=== PATIENT | male | born 1940 | race Caucasian/White ===

== ENCOUNTER 2020-03-13 12:51 | Inpatient (IN) ==
[2020-03-13] MEDS ORDERED: ACETAMINOPHEN 325 MG TABLET PO ONE (13:31)
[2020-03-13] MEDS ORDERED: 0.9 % SODIUM CHLORIDE 1,000 ML IV ONE ×2 (13:41→17:30)
--- NOTE | 2020-03-13 13:50 | XRay Report ---
INDICATION: fever, cough TECHNIQUE: AP portable upright chest x-ray COMPARISON: None FINDINGS: Lungs:Lungs are negative. No focal pulmonary parenchymal infiltrate or mass Heart, vascular:No significant cardiomegaly. Pulmonary vascularity is normal. No pulmonary edema or pulmonary congestion Mediastinum, sus[place]:No mediastinal widening. No hilar mass Pleura:No pleural fluid. No pleural-based mass or calcification Skeletal:Negative. IMPRESSION: Negative AP chest x-ray Interpreted and Authenticated by: Rd Hyatt 03/13/20
[2020-03-13 14:34] LABS: Appearance,Urine CLEAR; Bacteria,Urine 0 /hpf (0); Bilirubin,Urine NEG (NEG); Color,Urine YELLOW; Culture Indicated,Urine NO; Glucose,Urine (UA) >=500 mg/dL (NEG); Ketones,Urine 20 mg/dL (NEG); Leukocyte Esterase,Urine NEG /uL (NEG); Mucus,Urine FEW /hpf (0); Nitrate,Urine NEG (NEG); Protein,Urine >=500 mg/dL (NEG); Specific Gravity,Urine 1.017 (1.000-1.035); Urine Blood 0.2 mg/dL (<0.03); Urine Hyaline Cast 1 /lpf (0-2); Urine RBC 41 /hpf (0-1); Urine Squamous Epithelial Cell < 1 /hpf (0-4); Urine WBC 2 /hpf (0-4); Urobilinogen,Urine NEG (NEG)
[2020-03-13 16:06] LABS: ABG Methemoglobin 0 % (0.4-1.5); Total Hemoglobin 13.5 gm/dL (13.5-16.5); VBG Oxygen Saturation 93.4 % (40.0-70.0); VBG PH 7.42 U (7.32-7.42); VBG PO2 107 mmHg (25-40)
[2020-03-13 16:07] LABS: ALT/SGPT 10 U/l (0-40); AST/SGOT 14 U/l (0-37); Albumin 3.1 gm/dL (3.2-5.2); Alkaline Phosphatase 75 U/L (39-117); Bilirubin,Total 0.7 mg/dL (0.0-1.0); Blood Urea Nitrogen 45 mg/dl (8-23); Calcium 8.7 mg/dl (8.6-10.4); Carbon Dioxide 26 mmol/L (22-30); Chloride 97 mmol/L (96-108); Globulin 3.1 gm/dL (2.2-3.7); Glomerular Filtration Rate 25; Glucose 319 mg/dL (70-105)
[2020-03-13 16:10] LABS: Basophils # (Auto) 0.06 K/mcL (0.00-0.30); Basophils % (Auto) 0.4 % (0.0-2.0); Eosinophils # (Auto) 0.01 K/mcL (0.00-0.70); Eosinophils % (Auto) 0.1 % (0.0-7.0); Granulocytes % (Auto) 92.1 % (38.0-78.0); Hematocrit 42.6 % (40.1-51.0); Hemoglobin 13.6 g/dL (13.7-17.5); Lymphocytes # (Auto) 0.21 K/mcL (1.50-4.80); Lymphocytes % (Auto) 1.6 % (15.5-49.0); Mean Cell Volume 88.4 fL (80.0-100.0); Mean Corpuscular HGB Conc 31.9 g/dL (31.0-36.0); Monocytes # (Auto) 0.78 K/mcL (0.10-0.90); Monocytes % (Auto) 5.8 % (1.0-12.0); Platelet Count 101 K/mcL (140-440); RBC 4.82 M/mcL (4.63-6.08); Red Cell Distribution Width 12.9 % (11.5-14.5); WBC 13.4 K/mcL (4.50-11.00)
--- NOTE | 2020-03-13 17:56 | Cat Scan Report ---
INDICATION: fever, cough COMPARISON: Chest x-rays dated 03/13/2020, 01/05/2014, 01/02/2011 TECHNIQUE: Axial noncontrast enhanced images through the chest. Sagittally and coronally reformatted images. MIP reformatted images. FINDINGS: Suboptimal evaluation as the patient was unable to suspend respiration Lungs:There is parenchymal density most consistent with dependent atelectasis in both lower lobes. There may be a very subtle small focus of groundglass opacity in the lingular segment of left upper lobe. Similar subtle possible abnormality in the right middle lobe. These are not considered definite abnormalities and may be secondary to less than optimal inspiration and motion. No other focal pulmonary parenchymal abnormalities. No parenchymal consolidation. There is no honeycombing or interlobular septal thickening. Mediastinum, vascular:No pathologic mediastinal or hilar adenopathy Thoracic aorta is negative. No aneurysmal dilatation Heart:No significant cardiomegaly. No pericardial effusion. Severe coronary artery calcification Pleura:No pleural effusion. No pleural-based mass. No pleural calcification Axilla, supraclavicular regions, chest wall:No axillary or supraclavicular adenopathy. Musculoskeletal:No thoracic compression fractures. No lytic lesions. No sternal or rib lesions Upper Abdomen:The adrenal glands are prominent bilaterally. Previous cholecystectomy IMPRESSION: 1. Suboptimal evaluation due to inability to suspend respiration and maximize inspiration 2. Possible subtle areas of groundglass opacity are present. Findings are not considered definite. 3. Bilateral dependent atelectasis The exam was performed using radiation dose optimization techniques including, but not limited to, automated exposure control, adjustment of the mA and/or kV according to patient size and use of iterative reconstruction technique. Interpreted and Authenticated by: Rd Hyatt 03/13/20
--- NOTE | 2020-03-13 19:05 | Emergency Department Note ---
General Adult HPI - General Chief complaint: Cold/Flu Symptoms Stated complaint: Fever/cough Time Seen by Provider: 03/13/20 13:24 Source: patient, EMS Mode of arrival: EMS Limitations: no limitations - History of Present Illness HPI Narrative: Patient presents emergency department for cough, generalized weakness, fever. He states that that presently the cough seems to have resolved to see more prominent in the mornings. He became weak today and collapsed at home and could not get up. He is brought to the emergency department by EMS. Nursing staff report that on patient arrival he did seem confused but this improved with hydration and Tylenol. Currently he states that he is feeling better. He does have a history of chronic renal problems. No other complaints. - Related Data Home Medications Medication Instructions Recorded Confirmed Aspirin [Lo-Dose Aspirin EC] 81 mg PO DAILY 03/13/20 03/13/20 Chlorthalidone [Hygroton] 12.5 mg PO DAILY 03/13/20 03/13/20 Diltiazem [Cardizem Sr] 120 mg PO DAILY 03/13/20 03/13/20 Gabapentin 600 mg PO BID 03/13/20 03/13/20 Insulin Glargine, Human [Lantus] unit SQ HS 03/13/20 Novolog Flexpen 03/13/20 Omeprazole 20 mg PO BID 03/13/20 03/13/20 Potassium Chloride [Kdur] 10 meq PO BIDCC 03/13/20 03/13/20 Pravastatin [Pravachol] 40 mg PO HS 03/13/20 03/13/20 Allergies Allergy/AdvReac Type Severity Reaction Status Date / Time No Known Drug Allergies Allergy Unverified 03/13/20 13:05 Review of Systems Review of Systems: As above, all other systems reviewed and negative. Past Medical History - Past Medical History Attestation: Yes: The following information was validated with the patient. Source: nursing notes reviewed - Social History smoking status: Former smoker Physical Exam Limitations: no limitations General appearance: alert Head: atraumatic, normocephalic Eye: Present: normal appearance, PERRL, EOMI ENT: Present: normal exam Respiratory: Present: normal lung sounds bilaterally Cardiovascular: Present: tachycardia Extremities: Present: normal inspection Neurological: Present: alert, CN II-XII intact. Absent: motor sensory deficit Psychiatric: Present: normal affect Skin: Present: warm Course Vital Signs Temperature 102 F H 04/23/20 12:53 Pulse Rate 132 H 03/13/20 12:53 Respiratory Rate 19 03/13/20 12:53 Blood Pressure 178/91 03/13/20 12:53 Pulse Oximetry (%) 89 L 03/13/20 12:53 Temperature 98 F 03/13/20 14:24 Pulse Rate 126 H 03/13/20 18:01 Respiratory Rate 19 03/13/20 20:17 Blood Pressure 139/85 03/13/20 20:17 Pulse Oximetry (%) 96 03/13/20 18:01 Medical Decision Making - MDM Narrative Medical decision making narrative: Emergency department course: EKG shows sinus tachycardia, right bundle branch block, no acute ischemic changes. Chest x-ray showed no acute cardiopulmonary pathology. Laboratory studies reviewed as per the electronic medical record. Patient is hydrated IV fluids and medicated with Tylenol. On reviewing his vital sign trends vital signs appear to be labile with heart rate periodically into the 120s. Did repeat an EKG which appears to be sinus tachycardia. His respiratory rate has also been periodically elevated as high as 44. Blood pressures been stable. CT of the chest is read by radiology shows some possible groundglass opacities. Patient was swabbed for COVID-19. I spoke with the on-call hospitalist. Case reviewed in detail. Hospitalist agreed with admission. Impression: Febrile illness Plan: As above - Lab Data Lab results reviewed: Yes I reviewed the patient's lab results. Result diagrams: 03/13/20 13:58 03/13/20 13:58 Lab Results 03/13/20 03/13/20 03/13/20 Range/Units 13:30 13:58 13:58 WBC 13.4 H (4.50-11.00) K/mcL RBC 4.82 (4.63-6.08) M/mcL Hgb 13.6 L (13.7-17.5) g/dL Hct 42.6 (40.1-51.0) % MCV 88.4 (80.0-100.0) fL MCH 28.2 (26.0-34.0) pg MCHC 31.9 (31.0-36.0) g/dL RDW 12.9 (11.5-14.5) % Plt Count 101 L (140-440) K/mcL MPV 12.0 H (7.4-10.4) fL Gran % 92.1 H (38.0-78.0) % Lymph % (Auto) 1.6 L (15.5-49.0) % [place] % (Auto) 5.8 (1.0-12.0) % Eos % (Auto) 0.1 (0.0-7.0) % Baso % (Auto) 0.4 (0.0-2.0) % Gran # 12.33 H (1.80-8.00) K/mcL Lymph # (Auto) 0.21 L (1.50-4.80) K/mcL [place] # (Auto) 0.78 (0.10-0.90) K/mcL Eos # (Auto) 0.01 (0.00-0.70) K/mcL Baso # (Auto) 0.06 (0.00-0.30) K/mcL ABG Methemoglobin (0.4-1.5) % VBG pH (7.32-7.42) U VBG pCO2 VBG pO2 (25-40) mmHg VBG HCO3 VBG Total CO2 VBG O2 Saturation (40.0-70.0) % VBG Base Excess VBG Lactic Acid (0.5-2.0) mmol/L Carboxyhemoglobin (0.0-1.5) % THgb Total Hemoglobin (13.5-16.5) gm/dL O2 Delivery Level Sodium 136 (133-145) mmol/L Potassium 4.0 (3.3-5.1) mmol/L Chloride 97 (96-108) mmol/L Carbon Dioxide 26 (22-30) mmol/L Anion Gap 13.0 (8-16) BUN 45 H (8-23) mg/dl Creatinine 2.4 H (0.7-1.2) mg/dl GFR Calculation 25 Glucose 319 H (70-105) mg/dL Calcium 8.7 (8.6-10.4) mg/dl Total Bilirubin 0.7 (0.0-1.0) mg/dL AST 14 (0-37) U/l ALT 10 (0-40) U/l Alkaline Phosphatase 75 (39-117) U/L Total Protein 6.2 (5.9-8.4) gm/dL Albumin 3.1 L (3.2-5.2) gm/dL Globulin 3.1 (2.2-3.7) gm/dL Albumin/Globulin Ratio 1.0 (1.0-2.3) Urine Color Yellow Urine Appearance Clear Urine pH 6.0 (5.0-9.0) Ur Specific [place] 1.017 (1.000-1.035) Urine Protein >=500 A (NEG) mg/dL Urine Glucose (UA) >=500 A (NEG) mg/dL Urine Ketones 20 A (NEG) mg/dL Urine Occult Blood 0.2 A (<0.03) mg/dL Urine Nitrate Neg (NEG) Urine Bilirubin Neg (NEG) mg/dL Urine Urobilinogen Neg (NEG) mg/dL Ur Leukocyte Esterase Neg (NEG) /uL Urine RBC 41 H (0-1) /hpf Urine WBC 2 (0-4) /hpf Ur Squamous Epith Cells < 1 (0-4) /hpf Urine Bacteria 0 (0) /hpf Hyaline Casts 1 (0-2) /lpf Urine Mucus Few (0) /hpf Ur Culture Indicated? No Nasal/Oral COVID-19 PCR COVID-19 PCR Interp 03/13/20 03/13/20 03/13/20 Range/Units 13:58 13:58 17:13 WBC (4.50-11.00) K/mcL RBC (4.63-6.08) M/mcL Hgb (13.7-17.5) g/dL Hct (40.1-51.0) % MCV (80.0-100.0) fL MCH (26.0-34.0) pg MCHC (31.0-36.0) g/dL RDW (11.5-14.5) % Plt Count (140-440) K/mcL MPV (7.4-10.4) fL Gran % (38.0-78.0) % Lymph % (Auto) (15.5-49.0) % [place] % (Auto) (1.0-12.0) % Eos % (Auto) (0.0-7.0) % Baso % (Auto) (0.0-2.0) % Gran # (1.80-8.00) K/mcL Lymph # (Auto) (1.50-4.80) K/mcL [place] # (Auto) (0.10-0.90) K/mcL Eos # (Auto) (0.00-0.70) K/mcL Baso # (Auto) (0.00-0.30) K/mcL ABG Methemoglobin 0 L (0.4-1.5) % VBG pH 7.42 (7.32-7.42) U VBG pCO2 TNP VBG pO2 107 H (25-40) mmHg VBG HCO3 TNP VBG Total CO2 TNP VBG O2 Saturation 93.4 H (40.0-70.0) % VBG Base Excess TNP VBG Lactic Acid 1.4 (0.5-2.0) mmol/L Carboxyhemoglobin 5.0 H (0.0-1.5) % THgb Total Hemoglobin 13.5 (13.5-16.5) gm/dL O2 Delivery Level Not Reportable Sodium (133-145) mmol/L Potassium (3.3-5.1) mmol/L Chloride (96-108) mmol/L Carbon Dioxide (22-30) mmol/L Anion Gap (8-16) BUN (8-23) mg/dl Creatinine (0.7-1.2) mg/dl GFR Calculation Glucose (70-105) mg/dL Calcium (8.6-10.4) mg/dl Total Bilirubin (0.0-1.0) mg/dL AST (0-37) U/l ALT (0-40) U/l Alkaline Phosphatase (39-117) U/L Total Protein (5.9-8.4) gm/dL Albumin (3.2-5.2) gm/dL Globulin (2.2-3.7) gm/dL Albumin/Globulin Ratio (1.0-2.3) Urine Color Urine Appearance Urine pH (5.0-9.0) Ur Specific [place] (1.000-1.035) Urine Protein (NEG) mg/dL Urine Glucose (UA) (NEG) mg/dL Urine Ketones (NEG) mg/dL Urine Occult Blood (<0.03) mg/dL Urine Nitrate (NEG) Urine Bilirubin (NEG) mg/dL Urine Urobilinogen (NEG) mg/dL Ur Leukocyte Esterase (NEG) /uL Urine RBC (0-1) /hpf Urine WBC (0-4) /hpf Ur Squamous Epith Cells (0-4) /hpf Urine Bacteria (0) /hpf Hyaline Casts (0-2) /lpf Urine Mucus (0) /hpf Ur Culture Indicated? Nasal/Oral COVID-19 PCR Cancelled COVID-19 PCR Interp Cancelled - Radiology Data Radiology results reviewed: Yes I reviewed the patient's radiology results. Disposition Pt seen by [employer]M [employer]TER SUPERVISOR/PA only: No Clinical Impression: Febrile illness Disposition: Still a Patient
--- NOTE | 2020-03-13 20:26 | Internal Med History&Physical ---
Medical - H&P: [facility] Patient information: Note initiated : 03/13/20 at 8:17 pm Service Date, if different from initiated Date: [] Patient: Gregory Kiser 79 y/o M admitted on for Fever/cough. Chief Complaint: [fall] History of present illness: Mr. Kiser is a 79 year old M with a history of kidney disease who was brought to the ER due to fall, fever and delirium. Patient is a poor historian and almost all history is obtained from ER physician and chart. His son did provide some information to ER physician late this afternoon. Patient fell at home and stayed on the floor for 5 to 6 hours because he was so weak. This morning patient was found to have mild fever, delirium and generalized weakness. He also has been having cough for a couple of days. ER nurse stated that on patient arrival he did seem confused but this improved with hydration and Tylenol. In the ER, he had one episode of desaturation, 89%. CT chest - Possible subtle areas of groundglass opacity are present. Covid 19 was sent When I saw patient in the ER, other than the symptoms mentioned above, he could not tell me more history. Denies chest pain, headache, dizziness, abdominal pain, or dysuria. Review of systems: Positive for symptoms mentioned in HP all other systems were reviewed and are negative. Medical - H&P: PMH Medical history: DM Family history: reviewed and not pertinent Have you smoked in the last 12 months: No Drug use: none Alcohol use: none Medical - H&P: Meds Home Medications Medication Instructions Recorded Confirmed Type Aspirin [Lo-Dose Aspirin EC] 81 mg PO DAILY 03/13/20 03/13/20 History Chlorthalidone [Hygroton] 12.5 mg PO DAILY 03/13/20 03/13/20 History Diltiazem [Cardizem Sr] 120 mg PO DAILY 03/13/20 03/13/20 History Gabapentin 600 mg PO BID 03/13/20 03/13/20 History Insulin Glargine, Human [Lantus] unit SQ 03/13/20 History Novolog Flexpen 03/13/20 History Omeprazole 20 mg PO BID 03/13/20 03/13/20 History Potassium Chloride [Kdur] 10 meq PO BIDCC 03/13/20 03/13/20 History Pravastatin [Pravachol] 40 mg PO HS 03/13/20 03/13/20 History Allergies Allergy/AdvReac Type Severity Reaction Status Date / Time No Known Drug Allergies Allergy Unverified 03/13/20 13:05 Medical - H&P: Exam - Constitutional Vitals: Temp Pulse Resp BP Pulse Ox 102 F H 126 H 23 H 158/81 96 03/13/20 13:39 03/13/20 18:01 03/13/20 20:01 03/13/20 20:01 03/13/20 18:01 - Other Additional findings: General - No acute distress Eyes - PERRLA, EOM intact ENT no rhinorrhea, no noticeable or palpable swelling, no redness or rash around throat or on face Neck supple, no JVD, no thyromegaly Respiratory: Lungs -clear, no wheezing or crackles. Cardiovascular - RRR no m/r/g, GI - Normal bowel sounds, no distended, soft. Extremeties - No edema, cyanosis or clubbing Hemo/lymphatic/immune no lymphadenopathy Neurological Alert and oriented x 1, no focal neurological deficits. Psychiatry flat affect Medical - H&P: Reslt - Labs CBC & Chem 7: 03/13/20 13:58 03/13/20 13:58 Labs: Short CBC 03/13/20 Range/Units 13:58 WBC 13.4 H (4.50-11.00) K/mcL Hgb 13.6 L (13.7-17.5) g/dL Hct 42.6 (40.1-51.0) % Plt Count 101 L (140-440) K/mcL BMP 03/13/20 13:58 Sodium 136 Potassium 4.0 Chloride 97 Carbon Dioxide 26 BUN 45 H Creatinine 2.4 H Glucose 319 H Calcium 8.7 Liver Function 03/13/20 Range/Units 13:58 Total Bilirubin 0.7 (0.0-1.0) mg/dL AST 14 (0-37) U/l ALT 10 (0-40) U/l Alkaline Phosphatase 75 (39-117) U/L Albumin 3.1 L (3.2-5.2) gm/dL Urine 03/13/20 Range/Units 13:30 Urine Color Yellow Urine Appearance Clear Urine pH 6.0 (5.0-9.0) Ur Specific [place] 1.017 (1.000-1.035) Urine Protein >=500 A (NEG) mg/dL Urine Glucose (UA) >=500 A (NEG) mg/dL - ABG Interpretation ABG results: 03/13/20 13:58 ABG Methemoglobin 0 L VBG pH 7.42 VBG pCO2 TNP VBG pO2 107 H VBG HCO3 TNP VBG Total CO2 TNP VBG O2 Saturation 93.4 H VBG Base Excess TNP Medical - H&P: A/P - Narrative A/P Narrative: Assessment: 1. Acute hypoxic respiratory failure 2. Possible pneumonia 3. Cough 4. Generalized weakness 5. Fever 6. Dehydration 7. Leukocytosis with lymphocytopenia 8. TABATHA or CKD, creatinine 2.4 9. DM type 2 10. HTN Plan: 1. In the ER, he had one episode of aspiration, 89%. Pulse ox Oxygen 2. Patient has been having coughing, fever and generalized weakness. Unknown etiology Covid 19 was sent in the ER CRP, procalcitonin 3. Patient collapsed at home due to generalized weakness. CT of head Carotid US doppler CK, troponin EKG PT 4. In the ER, 2 L normal saline was given. Continue IV fluid 5. Creatinine 2.4. Do not know if patient has a TABATHA or CKD or CKD. IV fluid Intake and output Repeat renal function in the morning 6. Diabetic diet. Patient is on Lantus at home but do not know how many units he is on We have Lantus 5 units at bedtime Insulin sliding scale We will adjust insulin based on blood sugar levels 7. Continue chlorthalidone and diltiazem blood pressure 8. DVT prophylaxis: Heparin 9. Code status: full will need to discuss with family
[2020-03-13] MEDS ORDERED: PROCHLORPERAZINE 25 MG SUPP.RECT PR PRN ×2 (20:36→21:41)
[2020-03-13] MEDS ORDERED: DEXTROSE 50% 50 ML VIAL IV PRN ×2 (20:36→21:41)
[2020-03-13] MEDS ORDERED: ACETAMINOPHEN 325 MG TABLET PO PRN ×2 (20:36→21:41)
[2020-03-13] MEDS ORDERED: DEXTROSE 31 GM ORAL.SUSP PO PRN ×2 (20:36→21:41)
[2020-03-13] MEDS ORDERED: 0.9 % SODIUM CHLORIDE 1,000 ML IV SCH (20:45)
[2020-03-13 20:59] LABS: Creatine Kinase 124 IU/L (24-195)
[2020-03-13] MEDS ORDERED: traMADol 50 MG TABLET PO PRN ×2 (20:59→21:41)
[2020-03-13] MEDS ORDERED: OMEPRAZOLE 20 MG CAPSULE PO SCH (21:00)
[2020-03-13] MEDS ORDERED: HEPARIN 5,000 UNIT/ML VIAL SQ SCH (21:00)
[2020-03-13] MEDS ORDERED: INSULIN LISPRO 1 UNIT/0.01 ML UNIT SQ SCH (21:00)
[2020-03-13] MEDS ORDERED: INSULIN GLARGINE, HUMAN 1 UNIT/0.01 ML SQ SCH (21:00)
[2020-03-13] MEDS ORDERED: DOCUSATE SODIUM 100 MG CAPSULE PO SCH (21:00)
[2020-03-13] MEDS: 0.9 % SODIUM CHLORIDE 1,000 ML IV SCH (22:00)
[2020-03-13] MEDS ORDERED: 0.9 % SODIUM CHLORIDE 10 ML SYRINGE IV SCH (22:00)
[2020-03-13] MEDS: 0.9 % SODIUM CHLORIDE 10 ML SYRINGE IV SCH (22:27)
[2020-03-13] MEDS ORDERED: INSULIN GLARGINE, HUMAN 1 UNIT/0.01 ML SQ ONE (22:37)
[2020-03-13] MEDS ORDERED: INSULIN LISPRO 1 UNIT/0.01 ML UNIT SQ ONE (22:38)
[2020-03-13] MEDS: INSULIN LISPRO 1 UNIT/0.01 ML UNIT SQ SCH (22:42)
[2020-03-13] MEDS ORDERED: METOPROLOL TARTRATE 25 MG TABLET PO SCH (23:00)
[2020-03-13 23:04] LABS: Estimated Average Glucose(eAG) 174 mg/dL; Hemoglobin A1C 7.7 % HGB (4.0-6.0)
[2020-03-13 23:07] LABS: ALT/SGPT 11 U/l (0-40); AST/SGOT 15 U/l (0-37); Albumin 3.4 gm/dL (3.2-5.2); Albumin/Globulin Ratio 0.9 (1.0-2.3); Alkaline Phosphatase 80 U/L (39-117); Bilirubin,Total 0.8 mg/dL (0.0-1.0); Blood Urea Nitrogen 40 mg/dl (8-23); C-Reactive Protein 9.9 mg/dl (0.0-0.8); Calcium 8.8 mg/dl (8.6-10.4); Carbon Dioxide 27 mmol/L (22-30); Chloride 96 mmol/L (96-108); Globulin 3.6 gm/dL (2.2-3.7); Glomerular Filtration Rate 26; Glucose 241 mg/dL (70-105)
[2020-03-13 23:19] LABS: CRP,High Sensitivity 118.5 mg/L (1.0-3.0)
[2020-03-13] MEDS ORDERED: METOPROLOL TARTRATE 5 MG/5 ML VIAL IV PRN (23:45)
[2020-03-14] MEDS ORDERED: PRAVASTATIN 40 MG TABLET PO SCH ×2 (00:19→21:00)
[2020-03-14] MEDS ORDERED: HEPARIN 5,000 UNIT/ML VIAL ONE (00:28)
[2020-03-14] MEDS: OMEPRAZOLE 20 MG CAPSULE PO SCH ×3 (00:30→18:49)
[2020-03-14] MEDS: DOCUSATE SODIUM 100 MG CAPSULE PO SCH ×3 (00:30→21:59)
[2020-03-14] MEDS: HEPARIN 5,000 UNIT/ML VIAL SQ SCH ×3 (00:31→22:00)
[2020-03-14] MEDS ORDERED: METOPROLOL TARTRATE 5 MG/5 ML VIAL IV ONE (00:32)
[2020-03-14] MEDS ORDERED: LORazepam 2 MG/ML VIAL ONE (01:07)
[2020-03-14] MEDS: LORazepam 2 MG/ML VIAL IV PRN (01:08)
[2020-03-14] MEDS: ATORVASTATIN 40 MG TABLET PO SCH ×2 (01:08→22:00)
[2020-03-14] MEDS: 0.9 % SODIUM CHLORIDE 10 ML SYRINGE IV SCH ×3 (04:34→22:02)
[2020-03-14] MEDS ORDERED: ACETAMINOPHEN 325 MG TABLET PO ONE (04:36)
--- NOTE | 2020-03-14 05:49 | Cat Scan Report ---
INDICATION: fall COMPARISON: Previous examinations dated 01/07/2014 TECHNIQUE: Axial noncontrast-enhanced images through the brain. Sagittally and coronally reformatted images. FINDINGS: Cerebral hemispheres:No acute intra-axial hemorrhage. There is severe white matter abnormality consistent with small vessel ischemic change in this 79-year-old patient. This has progressed since 01/07/2014. No focal abnormality. No localized mass effect or midline shift. Brainstem and cerebellum:No intra-axial abnormality Extra-axial:No acute hemorrhage. No subdural or epidural hematoma. No subarachnoid hemorrhage. Basilar cisterns are normal Calvarial:No calvarial fracture. No lytic lesion Temporal bones are negative. No destructive lesions Soft tissue:Mild left supraorbital extracranial soft tissue swelling Examination was initially interpreted by [facility] IMPRESSION: 1. Severe white matter abnormality consistent with small vessel ischemic change 2. No acute intracranial hemorrhage. The exam was performed using radiation dose optimization techniques including, but not limited to, automated exposure control, adjustment of the mA and/or kV according to patient size and use of iterative reconstruction technique. Interpreted and Authenticated by: dR Hyatt 03/14/20
--- NOTE | 2020-03-14 05:53 | Ultrasound Report ---
INDICATION: fall/syncope COMPARISON: Previous carotid ultrasound dated 10/19/2012, 10/12/2008 TECHNIQUE: Carotid arteries were imaged in sagittal and transverse planes using 5 mHz linear probe: Doppler, color, and 2D. FINDINGS: There is atherosclerotic plaque in the proximal internal carotid artery bilaterally. There is mild plaque in the mid and distal cervical right internal carotid artery. Maximum Systolic Flow Velocity: - Right common carotid artery: 48 cm/sec - Right internal carotid artery: 37 cm/sec - Left common carotid artery: 56 cm/sec - Left internal carotid artery: 45 cm/sec Over all velocities appear low. No focal velocity elevation. No hemodynamically significant stenosis. No detectable ulceration. Vertebral arteries are antegrade patent bilaterally. IMPRESSION: 1. Bilateral internal carotid artery plaque. 2. No hemodynamically significant stenosis Interpreted and Authenticated by: Rd Hyatt 03/14/20
[2020-03-14 07:02] LABS: ALT/SGPT 10 U/l (0-40); AST/SGOT 15 U/l (0-37); Albumin/Globulin Ratio 0.9 (1.0-2.3); Alkaline Phosphatase 82 U/L (39-117); Bilirubin,Total 0.6 mg/dL (0.0-1.0); Blood Urea Nitrogen 39 mg/dl (8-23); Calcium 8.5 mg/dl (8.6-10.4); Carbon Dioxide 27 mmol/L (22-30); Globulin 3.4 gm/dL (2.2-3.7); Glomerular Filtration Rate 28; Glucose 195 mg/dL (70-105)
[2020-03-14 07:10] LABS: Phosphorous 2.6 mg/dL (2.7-4.5); Thyroid Stimulating Hormone 0.41 uIU/ml (0.27-5.01)
[2020-03-14 07:17] LABS: Chloride 95 mmol/L (96-108)
[2020-03-14 07:25] LABS: Basophils # (Auto) 0.04 K/mcL (0.00-0.30); Basophils % (Auto) 0.3 % (0.0-2.0); Eosinophils # (Auto) 0.05 K/mcL (0.00-0.70); Eosinophils % (Auto) 0.3 % (0.0-7.0); Granulocytes % (Auto) 92.1 % (38.0-78.0); Hematocrit 42.6 % (40.1-51.0); Hemoglobin 13.5 g/dL (13.7-17.5); Lymphocytes # (Auto) 0.46 K/mcL (1.50-4.80); Lymphocytes % (Auto) 3.1 % (15.5-49.0); Mean Cell Volume 88.8 fL (80.0-100.0); Mean Corpuscular HGB Conc 31.7 g/dL (31.0-36.0); Mean Platelet Volume 11.8 fL (7.4-10.4); Monocytes # (Auto) 0.63 K/mcL (0.10-0.90); Monocytes % (Auto) 4.2 % (1.0-12.0); Platelet Count 106 K/mcL (140-440); Red Cell Distribution Width 13.1 % (11.5-14.5)
[2020-03-14] MEDS: INSULIN LISPRO 1 UNIT/0.01 ML UNIT SQ SCH ×4 (08:06→22:36)
[2020-03-14] MEDS: ASPIRIN 81 MG TAB.CHEW PO SCH (08:08)
[2020-03-14] MEDS: GABAPENTIN 300 MG CAPSULE PO SCH (08:08)
[2020-03-14] MEDS: DILTIAZEM 120 MG CAP.XL.24H PO SCH ×2 (08:08→08:43)
[2020-03-14] MEDS ORDERED: MAGNESIUM SULFATE 2 GM/50 ML BAG IV ONE (08:08)
[2020-03-14] MEDS ORDERED: NEUTRA PHOS 1 PACKET PO ONE (08:09)
[2020-03-14] MEDS ORDERED: DOCUSATE SODIUM 100 MG CAPSULE PO SCH (09:00)
[2020-03-14] MEDS ORDERED: GABAPENTIN 300 MG CAPSULE PO SCH (09:00)
[2020-03-14] MEDS ORDERED: ASPIRIN 81 MG TAB.CHEW PO SCH (09:00)
[2020-03-14] MEDS ORDERED: DILTIAZEM 120 MG CAP.XL.24H PO SCH ×2 (09:00)
[2020-03-14] MEDS ORDERED: HEPARIN 5,000 UNIT/ML VIAL SQ SCH (09:00)
[2020-03-14] MEDS ORDERED: CHLORTHALIDONE 25 MG TABLET PO SCH (09:00)
[2020-03-14] MEDS ORDERED: NON FORMULARY MEDICATION 1 DOSE MISCELL (Omeprazole 20 MG) PO SCH (09:00)
[2020-03-14] MEDS: cefTRIAXone 2 GM in DEXTROSE 5% IN WATER 50 ML IV SCH (09:09)
[2020-03-14] MEDS: CHLORTHALIDONE 25 MG TABLET PO SCH (09:10)
--- NOTE | 2020-03-14 09:16 | XRay Report ---
INDICATION: Fever, cough TECHNIQUE: AP portable semiupright chest x-ray COMPARISON: None FINDINGS: Lungs:Lungs are negative. No focal pulmonary parenchymal infiltrate or mass. Subtle possible groundglass infiltrates are identified on previous CT scan. These are not identified on plain film study. Although these are not considered definite on CT scan, pneumonia including Covid pneumonia remain possible. Heart, vascular:No significant cardiomegaly. Pulmonary vascularity is normal. No pulmonary edema or pulmonary congestion Mediastinum, [place]:No mediastinal widening. No hilar mass Pleura:No pleural fluid. No pleural-based mass or calcification Skeletal:Negative. IMPRESSION: 1. Negative chest x-ray. No definite focal infiltrate. No parenchymal mass 2. Subtle possible groundglass opacities were demonstrated on chest CT scan dated 03/13/2020. Covid pneumonia remains possible Interpreted and Authenticated by: Rd Hyatt 03/14/20
--- NOTE | 2020-03-14 09:40 | Event Note ---
Parties in Attendance: Daughter Mira (POBe), LADARIUS Whelan and development writer. POLST form completed: not LADARIUS Whelan and I called Mira and explained the process regarding CPR, defibrillation, shock, and intubation and medication treatment to the patient. The daughter agreed with CRP/resuscitation and intubation.
[2020-03-14] MEDS: AZITHROMYCIN 500 MG in DEXTROSE 5% IN WATER 250 ML IV SCH (10:04)
[2020-03-14] MEDS: METOPROLOL TARTRATE 25 MG TABLET PO SCH ×2 (10:11→21:59)
[2020-03-14] MEDS: 0.9 % SODIUM CHLORIDE 1,000 ML IV SCH (10:11)
[2020-03-14 16:33] LABS: Basophils # (Auto) 0.03 K/mcL (0.00-0.30); Basophils % (Auto) 0.2 % (0.0-2.0); Eosinophils # (Auto) 0.02 K/mcL (0.00-0.70); Eosinophils % (Auto) 0.2 % (0.0-7.0); Granulocytes % (Auto) 89.6 % (38.0-78.0); Hematocrit 39.9 % (40.1-51.0); Hemoglobin 12.7 g/dL (13.7-17.5); Lymphocytes # (Auto) 0.59 K/mcL (1.50-4.80); Lymphocytes % (Auto) 4.9 % (15.5-49.0); Mean Cell Volume 88.7 fL (80.0-100.0); Mean Corpuscular HGB Conc 31.8 g/dL (31.0-36.0); Mean Platelet Volume 11.6 fL (7.4-10.4); Monocytes # (Auto) 0.62 K/mcL (0.10-0.90); Monocytes % (Auto) 5.1 % (1.0-12.0); Platelet Count 98 K/mcL (140-440); Red Cell Distribution Width 13.2 % (11.5-14.5); WBC 12.1 K/mcL (4.50-11.00)
--- NOTE | 2020-03-14 18:07 | Internal Med Progress Note ---
Medical - PN: Subj Patient information: Note initiated : 03/14/20 at 5:55 pm Service Date, if different from initiated Date: [] Patient: Gregory Kiser 79 y/o M admitted on 03/13/20 for Fever/cough. Chief Complaint: [] Mr. Kiser is a 79 year old M with a history of kidney disease who was brought to the ER due to fall, fever and delirium. Patient is a poor historian and almost all history is obtained from ER physician and chart. His son did provide some information to ER physician late this afternoon. Patient fell at home and stayed on the floor for 5 to 6 hours because he was so weak. This morning patient was found to have mild fever, delirium and generalized weakness. He also has been having cough for a couple of days. ER nurse stated that on patient arrival he did seem confused but this improved with hydration and Tylenol. In the ER, he had one episode of desaturation, 89%. CT chest - Possible subtle areas of groundglass opacity are present. Covid 19 was sent When I saw patient in the ER, other than the symptoms mentioned above, he could not tell me more history. Denies chest pain, headache, dizziness, abdominal angelita n, or dysuria. 03/14 Pt does not have complaints. Denies headache, fever/chills, n/v, chest pain or abd pain. BP is better controlled He was found to have unequal pupils. No significant neurological deficits. CT of head was ordered but he refused it. CT of head yesterday - no acute change. Blood culture, LA, procalcitonin azithromycin and ceftriaxone were started this morning. I will stop ceftriaxone and start zosyn Mag and phos were given, will repeat them in am - Constitutional Vitals: Vital Signs Temp Pulse Resp BP Pulse Ox 97.9 F 82 17 161/89 94 03/14/20 12:00 03/14/20 14:03 03/14/20 14:03 03/14/20 14:00 03/14/20 14:03 Period Temp Pulse Resp BP Sys/Bello Pulse Ox Last 24 Hr 97.9 F-101.4 F 80-127 0-28 122-172/68-108 86-98 Intake and Output 03/14/20 03/14/20 03/14/20 05:59 13:59 21:59 Intake Total 240 964 Output Total 254 400 Balance -14 564 Weight 105.687 kg Patient Weight 03/15/20 05:59 Weight 105.687 kg Intake & Output: Intake & Output 03/14/20 03/14/20 03/14/20 05:59 13:59 21:59 Intake Total 240 964 Output Total 254 400 Balance -14 564 Weight 105.687 kg Intake: IV 964 Sodium Chloride 0.9% 1,000 ml @ 914 75 mls/hr IV .[id number] Rx#: [id number] Rocephin 2 gm In Dextrose 5% in 50 Water 50 ml @ 100 mls/hr IV DAILY [facility] Rx#:[id number] Oral 240 Output: Void Amount 250 400 # of times incontinent of urine 4 Other: Urine Appearance Clear Clear Clear Urine Color Bright Yellow Light Symone Light Symone - Additional findings Additional findings: General - No acute distress Eyes - PERRLA, EOM intact ENT no rhinorrhea, no noticeable or palpable swelling, no redness or rash around throat or on face Neck supple, no JVD, no thyromegaly Respiratory: Lungs -clear, no wheezing or crackles. Cardiovascular - RRR no m/r/g, GI - Normal bowel sounds, no distended, soft. Extremeties - No edema, cyanosis or clubbing Hemo/lymphatic/immune no lymphadenopathy Neurological Alert and oriented x 1, no focal neurological deficits. Psychiatry flat affect Medical - PN: Obj Da - Labs CBC & Chem 7: 03/14/20 15:35 03/14/20 04:47 Labs: Abnormal Lab Results 03/14/20 03/14/20 03/14/20 15:35 04:47 04:47 WBC 12.1 H RBC 4.50 L Hgb 12.7 L Hct 39.9 L Plt Count 98 L MPV 11.6 H Gran % 89.6 H Lymph % (Auto) 4.9 L Gran # 10.88 H Lymph # (Auto) 0.59 L ABG Methemoglobin VBG pO2 VBG O2 Saturation Carboxyhemoglobin Chloride 95 L BUN 39 H Creatinine 2.2 H Glucose 195 H Hemoglobin A1c Calcium 8.5 L Phosphorus 2.6 L C-Reactive Protein C-React Prot High Sens NT-Pro-B Natriuret Pep Albumin 3.0 L Albumin/Globulin Ratio 0.9 L Urine Protein Urine Glucose (UA) Urine Ketones Urine Occult Blood Urine RBC 03/14/20 03/13/20 03/13/20 04:47 21:30 13:58 WBC 15.0 H RBC Hgb 13.5 L Hct Plt Count 106 L MPV 11.8 H Gran % 92.1 H Lymph % (Auto) 3.1 L Gran # 13.86 H Lymph # (Auto) 0.46 L ABG Methemoglobin 0 L VBG pO2 107 H VBG O2 Saturation 93.4 H Carboxyhemoglobin 5.0 H Chloride BUN 40 H Creatinine 2.3 H Glucose 241 H Hemoglobin A1c 7.7 H Calcium Phosphorus C-Reactive Protein 9.9 H C-React Prot High Sens 118.5 H NT-Pro-B Natriuret Pep 2978.0 H Albumin Albumin/Globulin Ratio 0.9 L Urine Protein Urine Glucose (UA) Urine Ketones Urine Occult Blood Urine RBC 03/13/20 03/13/20 03/13/20 13:58 13:58 13:30 WBC 13.4 H RBC Hgb 13.6 L Hct Plt Count 101 L MPV 12.0 H Gran % 92.1 H Lymph % (Auto) 1.6 L Gran # 12.33 H Lymph # (Auto) 0.21 L ABG Methemoglobin VBG pO2 VBG O2 Saturation Carboxyhemoglobin Chloride BUN 45 H Creatinine 2.4 H Glucose 319 H Hemoglobin A1c Calcium Phosphorus C-Reactive Protein C-React Prot High Sens NT-Pro-B Natriuret Pep Albumin 3.1 L Albumin/Globulin Ratio Urine Protein >=500 A Urine Glucose (UA) >=500 A Urine Ketones 20 A Urine Occult Blood 0.2 A Urine RBC 41 H Meds: Medications Acetaminophen (Tylenol) 650 mg PO Q6HP PRN; Protocol PRN Reason: Per Pain Protocol/Fever > 101 Last Admin: 03/14/20 04:34 Dose: 650 mg Documented by: Aspirin (Aspirin) 81 mg PO DAILY [facility] Last Admin: 03/14/20 08:08 Dose: 81 mg Documented by: Atorvastatin Calcium (Lipitor) 40 mg PO HS [facility] Last Admin: 03/14/20 01:08 Dose: 40 mg Documented by: Chlorthalidone (Hygroton) 12.5 mg PO DAILY [facility] Last Admin: 03/14/20 09:10 Dose: 12.5 mg Documented by: Dextrose (Dextrose 50%) 0 ml IV UD PRN PRN Reason: Hypoglycemia Diagnostic Test (Pha) (Accu-Chek) 1 each FS ACHS [facility] Last Admin: 03/14/20 11:38 Dose: 1 each Documented by: Diltiazem HCl (Cardizem Sr) 120 mg PO DAILY [facility] Last Admin: 03/14/20 08:43 Dose: Not Given Documented by: Docusate Sodium (Colace) 100 mg PO BID [facility] Last Admin: 03/14/20 08:07 Dose: 100 mg Documented by: Gabapentin (Neurontin) 600 mg PO DAILY [facility] Last Admin: 03/14/20 08:08 Dose: 600 mg Documented by: Glucose (Insta-Glucose) 15 gm PO PRN PRN PRN Reason: Hypoglycemia Heparin Sodium (Porcine) (Heparin) 5,000 unit SQ Q12 [facility] Last Admin: 03/14/20 08:07 Dose: 5,000 unit Documented by: Hydralazine HCl (Apresoline) 10 mg IV Q4-6HP PRN PRN Reason: Hypertension Sodium Chloride (Sodium Chloride 0.9%) 1,000 mls @ 75 mls/hr IV .[id number] [facility] Last Admin: 03/14/20 10:11 Dose: 75 mls/hr Documented by: Ceftriaxone Sodium 2 gm/ (Dextrose) 50 mls @ 100 mls/hr IV DAILY [facility]; Protocol Last Infusion: 03/14/20 10:39 Dose: Infused Documented by: Azithromycin 500 mg/ Dextrose 250 mls @ 250 mls/hr IV Q24H [facility]; Protocol Stop: 03/16/20 09:59 Last Admin: 03/14/20 10:04 Dose: 250 mls/hr Documented by: Insulin Glargine (Lantus) 7 unit SQ [facility] Insulin Human Lispro (Humalog) 0 unit SQ [facility]; Protocol Last Admin: 03/14/20 12:54 Dose: 2 units Documented by: Lorazepam (Ativan) 0.5 mg IV Q6HP PRN PRN Reason: ANXIETY/SEDATION Last Admin: 03/14/20 01:08 Dose: 0.5 mg Documented by: Metoprolol Tartrate (Lopressor) 12.5 mg PO BID [facility] Last Admin: 03/14/20 10:11 Dose: 12.5 mg Documented by: Omeprazole (Prilosec) 20 mg PO BIDAC [facility] Last Admin: 03/14/20 08:07 Dose: 20 mg Documented by: Prochlorperazine (Compazine) 12.5 mg CO Q12HP PRN; Protocol PRN Reason: Nausea And Vomiting Sodium Chloride (Saline Flush) 10 ml IV Q8 [facility] Last Admin: 03/14/20 14:01 Dose: Not Given Documented by: Tramadol HCl (Ultram) 50 mg PO Q6HP PRN PRN Reason: Pain - ABG Interpretation ABG results: 03/13/20 13:58 ABG Methemoglobin 0 L VBG pH 7.42 VBG pCO2 TNP VBG pO2 107 H VBG HCO3 TNP VBG Total CO2 TNP VBG O2 Saturation 93.4 H VBG Base Excess TNP Medical - PN: A/P - Time Spent With Patient Total time spent is greater than 50% in coordination of care (as documented) at patient's floor/unit and/or counseling patient: - Narrative A/P Narrative: Assessment: 1. Acute hypoxic respiratory failure 2. Possible pneumonia 3. Cough 4. Generalized weakness 5. Fever 6. Dehydration 7. Leukocytosis with lymphocytopenia 8. TABATHA or CKD, creatinine 2.4 9. DM type 2 10. HTN Plan: 1. In the ER, he had one episode of aspiration, 89%. Pulse ox Oxygen 2. Patient has been having coughing, fever and generalized weakness. Unknown etiology Covid 19 was sent in the ER CRP and procalcitonin elevated Azithromycin and zosyn 3. Patient collapsed at home due to generalized weakness. CT of head yesterday - negative for acute change. Pt refused to repeat CT of head. Carotid US doppler - No hemodynamically significant stenosis CK WNL, troponin negative x 2 EKG - No ST elevation PT 4. In the ER, 2 L normal saline was given. Continue IV fluid 5. Creatinine went down to 2.2. Do not know if patient has a TABATHA or CKD or CKD. IV fluid Intake and output Repeat renal function in the morning 6. Hba1c 7.7 Diabetic diet. Patient is on Lantus at home but do not know how many units he is on We have Lantus 5 units at bedtime Insulin sliding scale We will adjust insulin based on blood sugar levels 7. Continue chlorthalidone and diltiazem blood pressure. added metoprolol 12.5mg bid. 8. DVT prophylaxis: Heparin 9. Code status: full will need to discuss with family
[2020-03-14] MEDS: hydrALAZINE 20 MG/ML VIAL IV PRN (20:06)
[2020-03-14] MEDS ORDERED: INSULIN GLARGINE, HUMAN 1 UNIT/0.01 ML SQ SCH (21:00)
[2020-03-14] MEDS ORDERED: ATORVASTATIN 20 MG TABLET PO SCH (21:00)
[2020-03-14] MEDS: INSULIN GLARGINE, HUMAN 1 UNIT/0.01 ML SQ SCH (22:01)
[2020-03-15] MEDS: LORazepam 2 MG/ML VIAL IV PRN ×2 (00:18→21:15)
[2020-03-15] MEDS: 0.9 % SODIUM CHLORIDE 1,000 ML IV SCH ×2 (02:26→18:12)
[2020-03-15] MEDS: hydrALAZINE 20 MG/ML VIAL IV PRN (04:04)
[2020-03-15] MEDS: 0.9 % SODIUM CHLORIDE 10 ML SYRINGE IV SCH ×3 (04:04→21:18)
[2020-03-15 06:55] LABS: Basophils # (Auto) 0.04 K/mcL (0.00-0.30); Basophils % (Auto) 0.4 % (0.0-2.0); Eosinophils # (Auto) 0.03 K/mcL (0.00-0.70); Eosinophils % (Auto) 0.3 % (0.0-7.0); Granulocytes % (Auto) 83.4 % (38.0-78.0); Hematocrit 39.3 % (40.1-51.0); Hemoglobin 12.5 g/dL (13.7-17.5); Lymphocytes # (Auto) 0.86 K/mcL (1.50-4.80); Lymphocytes % (Auto) 7.7 % (15.5-49.0); Mean Cell Volume 88.9 fL (80.0-100.0); Mean Corpuscular HGB Conc 31.8 g/dL (31.0-36.0); Mean Platelet Volume 11.7 fL (7.4-10.4); Monocytes # (Auto) 0.92 K/mcL (0.10-0.90); Monocytes % (Auto) 8.2 % (1.0-12.0); Platelet Count 102 K/mcL (140-440); RBC 4.42 M/mcL (4.63-6.08); Red Cell Distribution Width 13.1 % (11.5-14.5); WBC 11.2 K/mcL (4.50-11.00)
[2020-03-15 07:07] LABS: Phosphorous 3.1 mg/dL (2.7-4.5)
[2020-03-15 07:09] LABS: ALT/SGPT 9 U/l (0-40); AST/SGOT 12 U/l (0-37); Albumin 2.6 gm/dL (3.2-5.2); Albumin/Globulin Ratio 0.8 (1.0-2.3); Alkaline Phosphatase 64 U/L (39-117); Bilirubin,Total 0.4 mg/dL (0.0-1.0); Blood Urea Nitrogen 33 mg/dl (8-23); Calcium 8.3 mg/dl (8.6-10.4); Carbon Dioxide 28 mmol/L (22-30); Chloride 99 mmol/L (96-108); Globulin 3.2 gm/dL (2.2-3.7); Glomerular Filtration Rate 29; Glucose 154 mg/dL (70-105)
[2020-03-15] MEDS: INSULIN LISPRO 1 UNIT/0.01 ML UNIT SQ SCH ×4 (08:25→21:16)
[2020-03-15] MEDS: GABAPENTIN 300 MG CAPSULE PO SCH (09:18)
[2020-03-15] MEDS: HEPARIN 5,000 UNIT/ML VIAL SQ SCH ×2 (09:18→21:16)
[2020-03-15] MEDS: DOCUSATE SODIUM 100 MG CAPSULE PO SCH ×2 (09:19→21:17)
[2020-03-15] MEDS: ASPIRIN 81 MG TAB.CHEW PO SCH (09:19)
[2020-03-15] MEDS: METOPROLOL TARTRATE 25 MG TABLET PO SCH ×2 (09:19→21:17)
[2020-03-15] MEDS: cefTRIAXone 2 GM in DEXTROSE 5% IN WATER 50 ML IV SCH (09:19)
[2020-03-15] MEDS: DILTIAZEM 120 MG CAP.XL.24H PO SCH (09:19)
[2020-03-15] MEDS: CHLORTHALIDONE 25 MG TABLET PO SCH (09:19)
[2020-03-15] MEDS: OMEPRAZOLE 20 MG CAPSULE PO SCH ×2 (09:19→17:37)
[2020-03-15] MEDS: AZITHROMYCIN 500 MG in DEXTROSE 5% IN WATER 250 ML IV SCH (09:20)
--- NOTE | 2020-03-15 09:54 | Cat Scan Report ---
INDICATION: Altered level of consciousness. Possible stroke COMPARISON: Previous examinations dated 03/13/2020, 01/07/2014, 01/05/2014 TECHNIQUE: Axial noncontrast-enhanced images through the brain. Sagittally and coronally reformatted images. FINDINGS: Cerebral hemispheres:No acute intra-axial hemorrhage. No new focal attenuation abnormalities or localized mass effect. No midline shift. There is severe white matter abnormality most consistent with small vessel ischemic change in this 79-year-old patient. There is a 9 mm nonacute lacunar infarction in the right thalamus. This is been present on prior examinations. Brainstem and cerebellum:No intra-axial abnormality Extra-axial:No acute hemorrhage. No subdural or epidural hematoma. No subarachnoid hemorrhage. Basilar cisterns are normal Calvarial:No calvarial fracture. No lytic lesion Temporal bones are negative. No destructive lesions Soft tissue:Orbits and visualized facial soft tissues are grossly normal. IMPRESSION: 1. Severe white matter abnormality and nonacute right thalamic lacunar infarction 2. No acute abnormality. No interval change The exam was performed using radiation dose optimization techniques including, but not limited to, automated exposure control, adjustment of the mA and/or kV according to patient size and use of iterative reconstruction technique. Interpreted and Authenticated by: Rd Hyatt 03/15/20
--- NOTE | 2020-03-15 09:57 | Cat Scan Report ---
INDICATION: pna COMPARISON: Previous chest x-rays dated 03/14/2020, 03/13/2020 TECHNIQUE: Axial noncontrast enhanced images through the chest. Sagittally and coronally reformatted images. MIP reformatted images. FINDINGS: Lungs:Lungs are negative. No focal pulmonary parenchymal density. No calcified or noncalcified pulmonary parenchymal nodule. There is minimal bilateral dependent atelectasis. No significant centrilobular or paraseptal emphysema. There is no honeycombing. No interlobular septal thickening. Mediastinum, vascular:No pathologic mediastinal or hilar adenopathy Thoracic aorta is negative. No aneurysmal dilatation Heart:No significant cardiomegaly. No pericardial effusion. There is calcified coronary artery disease Pleura:No pleural effusion. No pleural-based mass. No pleural calcification Axilla, supraclavicular regions, chest wall:No axillary or supraclavicular adenopathy. Musculoskeletal:No thoracic compression fractures. No lytic lesions. No sternal or rib lesions Upper Abdomen:Negative to the limits of noncontrast enhanced examination IMPRESSION: 1. Negative chest CT scan. No focal acute infiltrate 2. Atherosclerotic coronary artery disease. The exam was performed using radiation dose optimization techniques including, but not limited to, automated exposure control, adjustment of the mA and/or kV according to patient size and use of iterative reconstruction technique. Interpreted and Authenticated by: Rd Hyatt 03/15/20
--- NOTE | 2020-03-15 12:43 | Internal Med Progress Note ---
Medical - PN: Subj Patient information: Note initiated : 03/15/20 at 12:39 pm Service Date, if different from initiated Date: [] Patient: Gregory Kiser 79 y/o M admitted on 03/13/20 for Fever/cough. Chief Complaint: [] Interval history: Mr. Kiser is a 79 year old M with a history of kidney disease who was brought to the ER due to fall, fever and delirium. Patient is a poor historian and almost all history is obtained from ER physician and chart. His son did provide some information to ER physician late this afternoon. Patient fell at home and stayed on the floor for 5 to 6 hours because he was so weak. This morning patient was found to have mild fever, delirium and generalized weakness. He also has been having cough for a couple of days. ER nurse stated that on patient arrival he did seem confused but this improved with hydration and Tylenol. In the ER, he had one episode of desaturation, 89%. CT chest - Possible subtle areas of groundglass opacity are present. Covid 19 was sent When I saw patient in the ER, other than the symptoms mentioned above, he could not tell me more history. Denies chest pain, headache, dizziness, abdominal pain, or dysuria. 03/14 Pt does not have complaints. Denies headache, fever/chills, n/v, chest pain or abd pain. BP is better controlled He was found to have unequal pupils. No significant neurological deficits. CT of head was ordered but he refused it. CT of head yesterday - no acute change. Blood culture, LA, procalcitonin azithromycin and ceftriaxone were started this morning. I will stop ceftriaxone and start zosyn Mag and phos were given, will repeat them in am 03/15 Pt does not have complaints. Denies headache, fever/chills, n/v, chest pain or abd pain. Pupils are fine. No significant neurological deficits. CT of head today - no acute changes. CT chest - negative Blood culture - no growth so far LA - 1.7 procalcitonin - 8.73 WBC 11.2 I would like to discontinue azithromycin and continue zosyn for today. I could discontinue zosyn tomorrow. closely monitor Review of systems: Positive for symptoms mentioned in HP all other systems were reviewed and are negative. - Constitutional Vitals: Vital Signs Temp Pulse Resp BP Pulse Ox 98.0 F 101 H 18 137/72 93 03/15/20 08:00 03/15/20 10:42 03/15/20 08:00 03/15/20 12:01 03/15/20 10:42 Period Temp Pulse Resp BP Sys/Bello Pulse Ox Last 24 Hr 97.4 F-98.6 F 65-123 12-34 137-183/68-105 79-98 Intake and Output 03/14/20 03/15/20 03/15/20 21:59 05:59 13:59 Intake Total 650 1000 300 Output Total 250 352 300 Balance 400 648 0 Weight 105.188 kg Intake & Output: Intake & Output 03/14/20 03/15/20 03/15/20 21:59 05:59 13:59 Intake Total 650 1000 300 Output Total 250 352 300 Balance 400 648 0 Weight 105.188 kg Intake: IV 50 1000 Sodium Chloride 0.9% 1,000 ml @ 1000 75 mls/hr IV .[id number] [facility] Rx#: [id number] Oral 600 300 Output: Void Amount 250 350 300 # of times incontinent of urine 2 Other: Meal Breakfast Percent of Meal Consumed 75% 75% Feeding Ability Needs Supervision Needs Supervision Urine Appearance Clear Clear Clear Urine Color Light Symone Bright Yellow Dark Yellow - Additional findings Additional findings: General - No acute distress Eyes - PERRLA, EOM intact ENT no rhinorrhea, no noticeable or palpable swelling, no redness or rash around throat or on face Neck supple, no JVD, no thyromegaly Respiratory: Lungs -clear, no wheezing or crackles. Cardiovascular - RRR no m/r/g, GI - Normal bowel sounds, no distended, soft. Extremeties - No edema, cyanosis or clubbing Hemo/lymphatic/immune no lymphadenopathy Neurological Alert and oriented x 1, no focal neurological deficits. Psychiatry flat affect Medical - PN: Obj Da - Labs CBC & Chem 7: 03/15/20 04:37 03/15/20 04:37 Labs: Abnormal Lab Results 03/15/20 03/15/20 03/14/20 04:37 04:37 15:35 WBC 11.2 H 12.1 H RBC 4.42 L 4.50 L Hgb 12.5 L 12.7 L Hct 39.3 L 39.9 L Plt Count 102 L 98 L MPV 11.7 H 11.6 H Gran % 83.4 H 89.6 H Lymph % (Auto) 7.7 L 4.9 L Gran # 9.35 H 10.88 H Lymph # (Auto) 0.86 L 0.59 L Bureau # (Auto) 0.92 H ABG Methemoglobin VBG pO2 VBG O2 Saturation Carboxyhemoglobin Potassium 3.1 L Chloride BUN 33 H Creatinine 2.1 H Glucose 154 H Hemoglobin A1c Calcium 8.3 L Phosphorus C-Reactive Protein C-React Prot High Sens NT-Pro-B Natriuret Pep Total Protein 5.8 L Albumin 2.6 L Albumin/Globulin Ratio 0.8 L Urine Protein Urine Glucose (UA) Urine Ketones Urine Occult Blood Urine RBC 03/14/20 03/14/20 03/14/20 04:47 04:47 04:47 WBC 15.0 H RBC Hgb 13.5 L Hct Plt Count 106 L MPV 11.8 H Gran % 92.1 H Lymph % (Auto) 3.1 L Gran # 13.86 H Lymph # (Auto) 0.46 L Bureau # (Auto) ABG Methemoglobin VBG pO2 VBG O2 Saturation Carboxyhemoglobin Potassium Chloride 95 L BUN 39 H Creatinine 2.2 H Glucose 195 H Hemoglobin A1c Calcium 8.5 L Phosphorus 2.6 L C-Reactive Protein C-React Prot High Sens NT-Pro-B Natriuret Pep Total Protein Albumin 3.0 L Albumin/Globulin Ratio 0.9 L Urine Protein Urine Glucose (UA) Urine Ketones Urine Occult Blood Urine RBC 03/13/20 03/13/20 03/13/20 21:30 13:58 13:58 WBC RBC Hgb Hct Plt Count MPV Gran % Lymph % (Auto) Gran # Lymph # (Auto) Bureau # (Auto) ABG Methemoglobin 0 L VBG pO2 107 H VBG O2 Saturation 93.4 H Carboxyhemoglobin 5.0 H Potassium Chloride BUN 40 H 45 H Creatinine 2.3 H 2.4 H Glucose 241 H 319 H Hemoglobin A1c 7.7 H Calcium Phosphorus C-Reactive Protein 9.9 H C-React Prot High Sens 118.5 H NT-Pro-B Natriuret Pep 2978.0 H Total Protein Albumin 3.1 L Albumin/Globulin Ratio 0.9 L Urine Protein Urine Glucose (UA) Urine Ketones Urine Occult Blood Urine RBC 03/13/20 03/13/20 13:58 13:30 WBC 13.4 H RBC Hgb 13.6 L Hct Plt Count 101 L MPV 12.0 H Gran % 92.1 H Lymph % (Auto) 1.6 L Gran # 12.33 H Lymph # (Auto) 0.21 L Bureau # (Auto) ABG Methemoglobin VBG pO2 VBG O2 Saturation Carboxyhemoglobin Potassium Chloride BUN Creatinine Glucose Hemoglobin A1c Calcium Phosphorus C-Reactive Protein C-React Prot High Sens NT-Pro-B Natriuret Pep Total Protein Albumin Albumin/Globulin Ratio Urine Protein >=500 A Urine Glucose (UA) >=500 A Urine Ketones 20 A Urine Occult Blood 0.2 A Urine RBC 41 H Meds: Medications Acetaminophen (Tylenol) 650 mg PO Q6HP PRN; Protocol PRN Reason: Per Pain Protocol/Fever > 101 Last Admin: 03/14/20 04:34 Dose: 650 mg Documented by: Aspirin (Aspirin) 81 mg PO DAILY [facility] Last Admin: 03/15/20 09:19 Dose: 81 mg Documented by: Atorvastatin Calcium (Lipitor) 40 mg PO HS [facility] Last Admin: 03/14/20 22:00 Dose: 40 mg Documented by: Chlorthalidone (Hygroton) 12.5 mg PO DAILY [facility] Last Admin: 03/15/20 09:19 Dose: 12.5 mg Documented by: Dextrose (Dextrose 50%) 0 ml IV UD PRN PRN Reason: Hypoglycemia Diagnostic Test (Pha) (Accu-Chek) 1 each FS ACHS [facility] Last Admin: 03/15/20 08:24 Dose: 1 each Documented by: Diltiazem HCl (Cardizem Sr) 120 mg PO DAILY [facility] Last Admin: 03/15/20 09:19 Dose: 120 mg Documented by: Docusate Sodium (Colace) 100 mg PO BID [facility] Last Admin: 03/15/20 09:19 Dose: 100 mg Documented by: Gabapentin (Neurontin) 600 mg PO DAILY [facility] Last Admin: 03/15/20 09:18 Dose: 600 mg Documented by: Glucose (Insta-Glucose) 15 gm PO PRN PRN PRN Reason: Hypoglycemia Heparin Sodium (Porcine) (Heparin) 5,000 unit SQ Q12 [facility] Last Admin: 03/15/20 09:18 Dose: 5,000 unit Documented by: Hydralazine HCl (Apresoline) 10 mg IV Q4-6HP PRN PRN Reason: Hypertension Last Admin: 03/15/20 04:04 Dose: 10 mg Documented by: Sodium Chloride (Sodium Chloride 0.9%) 1,000 mls @ 75 mls/hr IV .[id number] [facility] Last Admin: 03/15/20 02:26 Dose: 75 mls/hr Documented by: Ceftriaxone Sodium 2 gm/ (Dextrose) 50 mls @ 100 mls/hr IV DAILY [facility]; Protocol Last Admin: 03/15/20 09:19 Dose: 100 mls/hr Documented by: Azithromycin 500 mg/ Dextrose 250 mls @ 250 mls/hr IV Q24H [facility]; Protocol Stop: 03/16/20 09:59 Last Admin: 03/15/20 09:20 Dose: 250 mls/hr Documented by: Insulin Glargine (Lantus) 7 unit SQ HS [facility] Last Admin: 03/14/20 22:01 Dose: 7 units Documented by: Insulin Human Lispro (Humalog) 0 unit SQ [facility]; Protocol Last Admin: 03/15/20 08:25 Dose: Not Given Documented by: Lorazepam (Ativan) 0.5 mg IV Q6HP PRN PRN Reason: ANXIETY/SEDATION Last Admin: 03/15/20 00:18 Dose: 0.5 mg Documented by: Metoprolol Tartrate (Lopressor) 12.5 mg PO BID [facility] Last Admin: 03/15/20 09:19 Dose: 12.5 mg Documented by: Omeprazole (Prilosec) 20 mg PO BIDAC [facility] Last Admin: 03/15/20 09:19 Dose: 20 mg Documented by: Prochlorperazine (Compazine) 12.5 mg ND Q12HP PRN; Protocol PRN Reason: Nausea And Vomiting Sodium Chloride (Saline Flush) 10 ml IV Q8 [facility] Last Admin: 03/15/20 04:04 Dose: 10 ml Documented by: Tramadol HCl (Ultram) 50 mg PO Q6HP PRN PRN Reason: Pain - ABG Interpretation ABG results: 03/13/20 13:58 ABG Methemoglobin 0 L VBG pH 7.42 VBG pCO2 TNP VBG pO2 107 H VBG HCO3 TNP VBG Total CO2 TNP VBG O2 Saturation 93.4 H VBG Base Excess TNP Medical - PN: A/P - Time Spent With Patient Total time spent is greater than 50% in coordination of care (as documented) at patient's floor/unit and/or counseling patient: - Narrative A/P Narrative: Assessment: 1. Acute hypoxic respiratory failure 2. Possible pneumonia 3. Cough 4. Generalized weakness 5. Fever 6. Dehydration 7. Leukocytosis with lymphocytopenia 8. TABATHA or CKD, creatinine 2.4 9. DM type 2 10. HTN Plan: 1. In the ER, he had one episode of aspiration, 89%. Pulse ox Oxygen 2. Patient has been having coughing, fever and generalized weakness. Unknown etiology Covid 19 pending CRP and procalcitonin elevated CT chest - negative Blood culture - no growth so far LA - 1.7 procalcitonin - 8.73 WBC 11.2 I would like to discontinue azithromycin and continue zosyn for today. I could discontinue zosyn tomorrow. closely monitor 3. Patient collapsed at home due to generalized weakness. CT of head yesterday - negative for acute change. Repeat CT today - no acute change. Carotid US doppler - No hemodynamically significant stenosis CK WNL, troponin negative x 2 EKG - No ST elevation PT 4. In the ER, 2 L normal saline was given. Continue IV fluid 5. Creatinine went down to 2.1. Do not know if patient has a TABATHA or CKD or C KD. IV fluid Intake and output Repeat renal function in the morning 6. Hba1c 7.7 Diabetic diet. Patient is on Lantus at home but do not know how many units he is on We have Lantus 5 units at bedtime Insulin sliding scale We will adjust insulin based on blood sugar levels 7. Continue chlorthalidone and diltiazem blood pressure. added metoprolol 12.5mg bid. 8. DVT prophylaxis: Heparin 9. Code status: full will need to discuss with family
[2020-03-15] MEDS: PIPERACILLIN SODIUM/TAZOBACTAM 3.375 GM in DEXTROSE 5% IN WATER 50 ML IV SCH ×2 (13:42→17:38)
[2020-03-15] MEDS: POTASSIUM CHLORIDE 20 MEQ TABLET PO SCH (17:38)
[2020-03-15] MEDS: INSULIN GLARGINE, HUMAN 1 UNIT/0.01 ML SQ SCH (21:16)
[2020-03-15] MEDS: ATORVASTATIN 40 MG TABLET PO SCH (21:17)
[2020-03-16] MEDS: PIPERACILLIN SODIUM/TAZOBACTAM 3.375 GM in DEXTROSE 5% IN WATER 50 ML IV SCH ×2 (00:02→05:30)
[2020-03-16] MEDS: hydrALAZINE 20 MG/ML VIAL IV PRN (00:02)
[2020-03-16] MEDS: 0.9 % SODIUM CHLORIDE 10 ML SYRINGE IV SCH ×3 (04:32→22:18)
[2020-03-16 05:33] LABS: Basophils # (Auto) 0.05 K/mcL (0.00-0.30); Basophils % (Auto) 0.6 % (0.0-2.0); Eosinophils # (Auto) 0.13 K/mcL (0.00-0.70); Eosinophils % (Auto) 1.6 % (0.0-7.0); Granulocytes % (Auto) 75.5 % (38.0-78.0); Hematocrit 39.7 % (40.1-51.0); Hemoglobin 12.6 g/dL (13.7-17.5); Lymphocytes # (Auto) 0.89 K/mcL (1.50-4.80); Lymphocytes % (Auto) 11.3 % (15.5-49.0); Mean Cell Volume 88.8 fL (80.0-100.0); Mean Corpuscular HGB Conc 31.7 g/dL (31.0-36.0); Mean Platelet Volume 11.4 fL (7.4-10.4); Monocytes # (Auto) 0.87 K/mcL (0.10-0.90); Platelet Count 111 K/mcL (140-440); RBC 4.47 M/mcL (4.63-6.08); Red Cell Distribution Width 13.2 % (11.5-14.5); WBC 7.9 K/mcL (4.50-11.00)
[2020-03-16 05:34] LABS: ALT/SGPT 9 U/l (0-40); AST/SGOT 12 U/l (0-37); Albumin 2.6 gm/dL (3.2-5.2); Albumin/Globulin Ratio 0.8 (1.0-2.3); Alkaline Phosphatase 61 U/L (39-117); Bilirubin,Total 0.6 mg/dL (0.0-1.0); Blood Urea Nitrogen 28 mg/dl (8-23); Calcium 8.5 mg/dl (8.6-10.4); Carbon Dioxide 30 mmol/L (22-30); Chloride 99 mmol/L (96-108); Globulin 3.4 gm/dL (2.2-3.7); Glomerular Filtration Rate 31; Glucose 160 mg/dL (70-105)
[2020-03-16] MEDS: DOCUSATE SODIUM 100 MG CAPSULE PO SCH ×3 (05:36→21:55)
[2020-03-16] MEDS: 0.9 % SODIUM CHLORIDE 1,000 ML IV SCH ×3 (07:34→22:19)
[2020-03-16] MEDS: OMEPRAZOLE 20 MG CAPSULE PO SCH ×2 (07:35→17:03)
[2020-03-16] MEDS ORDERED: IPRATROPIUM/ALBUTEROL SULFATE 1 PUFF INHALER INH PRN ×2 (07:43→10:52)
[2020-03-16] MEDS ORDERED: POTASSIUM CHLORIDE 20 MEQ TABLET PO SCH ×2 (08:00→12:00)
[2020-03-16] MEDS: HEPARIN 5,000 UNIT/ML VIAL SQ SCH ×2 (09:47→21:54)
[2020-03-16] MEDS: POTASSIUM CHLORIDE 20 MEQ TABLET PO SCH ×3 (09:47→17:03)
[2020-03-16] MEDS: ASPIRIN 81 MG TAB.CHEW PO SCH (09:47)
[2020-03-16] MEDS: INSULIN LISPRO 1 UNIT/0.01 ML UNIT SQ SCH ×4 (09:48→21:58)
[2020-03-16] MEDS: METOPROLOL TARTRATE 25 MG TABLET PO SCH ×2 (09:49→21:54)
[2020-03-16] MEDS: CHLORTHALIDONE 25 MG TABLET PO SCH (09:49)
[2020-03-16] MEDS: GABAPENTIN 300 MG CAPSULE PO SCH (09:49)
[2020-03-16] MEDS: DILTIAZEM 120 MG CAP.XL.24H PO SCH (09:50)
[2020-03-16] MEDS ORDERED: hydrALAZINE 20 MG/ML VIAL IV PRN (10:52)
[2020-03-16] MEDS ORDERED: traMADol 50 MG TABLET PO PRN (10:52)
[2020-03-16] MEDS ORDERED: DEXTROSE 31 GM ORAL.SUSP PO PRN (10:52)
[2020-03-16] MEDS ORDERED: ACETAMINOPHEN 325 MG TABLET PO PRN (10:52)
[2020-03-16] MEDS ORDERED: PROCHLORPERAZINE 25 MG SUPP.RECT PR PRN (10:52)
[2020-03-16] MEDS ORDERED: LORazepam 2 MG/ML VIAL IV PRN (10:52)
[2020-03-16] MEDS ORDERED: DEXTROSE 50% 50 ML VIAL IV PRN (10:52)
--- NOTE | 2020-03-16 21:08 | Internal Med Progress Note ---
Medical - PN: Subj Patient information: Note initiated : 03/16/20 at 9:00 pm Service Date, if different from initiated Date: [] Patient: Gregory Kiser 79 y/o M admitted on 03/13/20 for Fever/cough. Chief Complaint: [] Interval history: Mr. Kiser is a 79 year old M with a history of kidney disease who was brought to the ER due to fall, fever and delirium. Patient is a poor historian and almost all history is obtained from ER physician and chart. His son did provide some information to ER physician late this afternoon. Patient fell at home and stayed on the floor for 5 to 6 hours because he was so weak. This morning patient was found to have mild fever, delirium and generalized weakness. He also has been having cough for a couple of days. ER nurse stated that on patient arrival he did seem confused but this improved with hydration and Tylenol. In the ER, he had one episode of desaturation, 89%. CT chest - Possible subtle areas of groundglass opacity are present. Covid 19 was sent When I saw patient in the ER, other than the symptoms mentioned above, he could not tell me more history. Denies chest pain, headache, dizziness, abdominal pain, or dysuria. 03/14 Pt does not have complaints. Denies headache, fever/chills, n/v, chest pain or abd pain. BP is better controlled He was found to have unequal pupils. No significant neurological deficits. CT of head was ordered but he refused it. CT of head yesterday - no acute change. Blood culture, LA, procalcitonin azithromycin and ceftriaxone were started this morning. I will stop ceftriaxone and start zosyn Mag and phos were given, will repeat them in am 03/15 Pt does not have complaints. Denies headache, fever/chills, n/v, chest pain or abd pain. Pupils are fine. No significant neurological deficits. CT of head today - no acute changes. CT chest - negative Blood culture - no growth so far LA - 1.7 procalcitonin - 8.73 WBC 11.2 I would like to discontinue azithromycin and continue zosyn for today. I could discontinue zosyn tomorrow. closely monitor 03/16 Pt does not have complaints. Denies have sob, fever/chills or cough. Good SpO2 on RM wbc normalized today. Abx discontinued today. K 3.1, KCl was given As per PT, he needs home health. He was initially planning to be discharged to son's house. Contacted son family who refused to accepted him because the family had a new baby recently. The family is worried about not enough isolation for covid 19. Review of systems: Positive for symptoms mentioned in HP all other systems were reviewed and are negative. - Constitutional Vitals: Vital Signs Temp Pulse Resp BP Pulse Ox 98.3 F 123 H 20 152/73 99 03/16/20 16:00 03/16/20 08:01 03/16/20 16:00 03/16/20 16:00 03/16/20 16:00 Period Temp Pulse Resp BP Sys/Bello Pulse Ox Last 24 Hr 97.8 F-98.8 F 80-123 08-16 135-187/73-118 93-100 Intake and Output 03/16/20 03/16/20 03/16/20 05:59 13:59 21:59 Intake Total 50 1300 360 Output Total 650 552 300 Balance -600 748 60 Intake & Output: Intake & Output 03/16/20 03/16/20 03/16/20 05:59 13:59 21:59 Intake Total 50 1300 360 Output Total 650 552 300 Balance -600 748 60 Intake: IV 50 1000 Sodium Chloride 0.9% 1,000 ml @ 1000 75 mls/hr IV .[id number] [facility] Rx#: [id number] Zosyn 3.375 gm In Dextrose 5% 50 in Water 50 ml @ 100 mls/hr IV Q6H [facility] Rx#:[id number] Oral 300 360 Output: Void Amount 650 300 # of times incontinent of urine 2 Urine/Stool Mix 550 Other: Meal Breakfast Dinner Percent of Meal Consumed 75% 50% Feeding Ability Assist with Tray Set Up Independent Urine Appearance Clear Clear Urine Color Bright Yellow Bright Yellow Stool Size Moderate Moderate Smear Stool Color Brown Brown Brown Green Stool Consistency Soft Loose Gretchen Formed Liquid # Bowel Movements 1 # of times incontinent of 1 2 0 Bowels - Neurological Exam Additional comments: General - No acute distress Eyes - PERRLA, EOM intact ENT no rhinorrhea, no noticeable or palpable swelling, no redness or rash around throat or on face Neck supple, no JVD, no thyromegaly Respiratory: Lungs -clear, no wheezing or crackles. Cardiovascular - RRR no m/r/g, GI - Normal bowel sounds, no distended, soft. Extremeties - No edema, cyanosis or clubbing Hemo/lymphatic/immune no lymphadenopathy Neurological Alert and oriented x 1, no focal neurological deficits. Psychiatry flat affect Medical - PN: Obj Da - Labs CBC & Chem 7: 03/16/20 04:17 03/16/20 04:17 Labs: Abnormal Lab Results 03/16/20 03/16/20 03/15/20 04:17 04:17 04:37 WBC RBC 4.47 L Hgb 12.6 L Hct 39.7 L Plt Count 111 L MPV 11.4 H Gran % Lymph % (Auto) 11.3 L Gran # Lymph # (Auto) 0.89 L [place] # (Auto) Potassium 3.1 L 3.1 L Chloride BUN 28 H 33 H Creatinine 2.0 H 2.1 H Glucose 160 H 154 H Hemoglobin A1c Calcium 8.5 L 8.3 L Phosphorus C-Reactive Protein C-React Prot High Sens NT-Pro-B Natriuret Pep Total Protein 5.8 L Albumin 2.6 L 2.6 L Albumin/Globulin Ratio 0.8 L 0.8 L 03/15/20 03/14/20 03/14/20 04:37 15:35 04:47 WBC 11.2 H 12.1 H RBC 4.42 L 4.50 L Hgb 12.5 L 12.7 L Hct 39.3 L 39.9 L Plt Count 102 L 98 L MPV 11.7 H 11.6 H Gran % 83.4 H 89.6 H Lymph % (Auto) 7.7 L 4.9 L Gran # 9.35 H 10.88 H Lymph # (Auto) 0.86 L 0.59 L [place] # (Auto) 0.92 H Potassium Chloride 95 L BUN 39 H Creatinine 2.2 H Glucose 195 H Hemoglobin A1c Calcium 8.5 L Phosphorus C-Reactive Protein C-React Prot High Sens NT-Pro-B Natriuret Pep Total Protein Albumin 3.0 L Albumin/Globulin Ratio 0.9 L 03/14/20 03/14/20 03/13/20 04:47 04:47 21:30 WBC 15.0 H RBC Hgb 13.5 L Hct Plt Count 106 L MPV 11.8 H Gran % 92.1 H Lymph % (Auto) 3.1 L Gran # 13.86 H Lymph # (Auto) 0.46 L [place] # (Auto) Potassium Chloride BUN 40 H Creatinine 2.3 H Glucose 241 H Hemoglobin A1c 7.7 H Calcium Phosphorus 2.6 L C-Reactive Protein 9.9 H C-React Prot High Sens 118.5 H NT-Pro-B Natriuret Pep 2978.0 H Total Protein Albumin Albumin/Globulin Ratio 0.9 L Meds: Medications Acetaminophen (Tylenol) 650 mg PO Q6HP PRN; Protocol PRN Reason: Per Pain Protocol/Fever > 101 Albuterol/Ipratropium (Combivent) 2 puff INH TIDP PRN PRN Reason: Shortness Of Breath Aspirin (Aspirin) 81 mg PO DAILY [facility] Atorvastatin Calcium (Lipitor) 40 mg PO HS [facility] Chlorthalidone (Hygroton) 12.5 mg PO DAILY [facility] Dextrose (Dextrose 50%) 0 ml IV UD PRN PRN Reason: Hypoglycemia Diagnostic Test (Pha) (Accu-Chek) 1 each [facility] Last Admin: 03/16/20 17:02 Dose: 1 each Documented by: Diltiazem HCl (Cardizem Sr) 120 mg PO DAILY [facility] Docusate Sodium (Colace) 100 mg PO BID [facility] Gabapentin (Neurontin) 600 mg PO DAILY [facility] Glucose (Insta-Glucose) 15 gm PO PRN PRN PRN Reason: Hypoglycemia Heparin Sodium (Porcine) (Heparin) 5,000 unit SQ Q12 [facility] Hydralazine HCl (Apresoline) 10 mg IV Q4-6HP PRN PRN Reason: Hypertension Sodium Chloride (Sodium Chloride 0.9%) 1,000 mls @ 75 mls/hr IV .[id number] [facility] Last Admin: 03/16/20 12:36 Dose: Not Given Documented by: Insulin Glargine (Lantus) 7 unit SQ HS [facility] Insulin Human Lispro (Humalog) 0 unit SQ [facility]; Protocol Last Admin: 03/16/20 17:03 Dose: 2 unit Documented by: Lorazepam (Ativan) 0.5 mg IV Q6HP PRN PRN Reason: ANXIETY/SEDATION Metoprolol Tartrate (Lopressor) 12.5 mg PO BID [facility] Last Admin: 03/16/20 17:03 Dose: 20 mg Documented by: Pneumococcal Polyvalent Vaccine (Pneumovax 23) 0.5 ml IM .ONCE ONE Stop: 03/17/20 10:01 Potassium Chloride (Kdur) 20 meq PO TIDCC [facility] Last Admin: 03/16/20 17:03 Dose: 20 meq Documented by: Prochlorperazine (Compazine) 12.5 mg IN Q12HP PRN; Protocol PRN Reason: Nausea And Vomiting Sodium Chloride (Saline Flush) 10 ml IV Q8 [facility] Last Admin: 03/16/20 13:06 Dose: Not Given Documented by: Tramadol HCl (Ultram) 50 mg PO Q6HP PRN PRN Reason: Pain - ABG Interpretation ABG results: 03/13/20 13:58 ABG Methemoglobin 0 L VBG pH 7.42 VBG pCO2 TNP VBG pO2 107 H VBG HCO3 TNP VBG Total CO2 TNP VBG O2 Saturation 93.4 H VBG Base Excess TNP Medical - PN: A/P - Time Spent With Patient Total time spent is greater than 50% in coordination of care (as documented) at patient's floor/unit and/or counseling patient: - Narrative A/P Narrative: Assessment: 1. Acute hypoxic respiratory failure 2. Possible pneumonia 3. Cough 4. Generalized weakness 5. Fever 6. Dehydration 7. Leukocytosis with lymphocytopenia 8. TABATHA or CKD, creatinine 2.4 9. DM type 2 10. HTN Plan: 1. In the ER, he had one episode of aspiration, 89%. Pulse ox Oxygen His SpO2 good on RM now 2. Patient has been having coughing, fever and generalized weakness. Unknown etiology Covid 19 pending CRP and procalcitonin elevated CT chest - negative Blood culture - no growth so far LA - 1.7 procalcitonin - 8.73 WBC normalized today Discontinued abx today 3. Patient collapsed at home due to generalized weakness. CT of head yesterday - negative for acute change. Repeat CT today - no acute change. Carotid US doppler - No hemodynamically significant stenosis CK WNL, troponin negative x 2 EKG - No ST elevation PT 4. In the ER, 2 L normal saline was given. Continue IV fluid 5. Creatinine went down to 2.0. Do not know if patient has a TABATHA or CKD or CKD. IV fluid Intake and output Repeat renal function in the morning 6. Hba1c 7.7 Diabetic diet. Patient is on Lantus at home but do not know how many units he is on We have Lantus 5 units at bedtime Insulin sliding scale We will adjust insulin based on blood sugar levels 7. Continue chlorthalidone and diltiazem blood pressure. added metoprolol 12.5mg bid. 8. DVT prophylaxis: Heparin 9. Code status: full Deposition: placement
[2020-03-16] MEDS: ATORVASTATIN 40 MG TABLET PO SCH (21:54)
[2020-03-16] MEDS: INSULIN GLARGINE, HUMAN 1 UNIT/0.01 ML SQ SCH (21:59)
[2020-03-17] MEDS: 0.9 % SODIUM CHLORIDE 10 ML SYRINGE IV SCH ×3 (04:02→21:31)
[2020-03-17 05:25] LABS: Basophils # (Auto) 0.05 K/mcL (0.00-0.30); Basophils % (Auto) 0.6 % (0.0-2.0); Eosinophils # (Auto) 0.15 K/mcL (0.00-0.70); Eosinophils % (Auto) 1.8 % (0.0-7.0); Granulocytes % (Auto) 74.6 % (38.0-78.0); Hematocrit 38.6 % (40.1-51.0); Hemoglobin 12.4 g/dL (13.7-17.5); Lymphocytes # (Auto) 1.08 K/mcL (1.50-4.80); Lymphocytes % (Auto) 12.8 % (15.5-49.0); Mean Cell Volume 88.7 fL (80.0-100.0); Mean Corpuscular HGB Conc 32.1 g/dL (31.0-36.0); Mean Platelet Volume 11.7 fL (7.4-10.4); Monocytes # (Auto) 0.86 K/mcL (0.10-0.90); Monocytes % (Auto) 10.2 % (1.0-12.0); RBC 4.35 M/mcL (4.63-6.08); WBC 8.5 K/mcL (4.50-11.00)
[2020-03-17 05:26] LABS: Platelet Count 122 K/mcL (140-440)
[2020-03-17 05:49] LABS: ALT/SGPT 10 U/l (0-40); AST/SGOT 13 U/l (0-37); Albumin 2.9 gm/dL (3.2-5.2); Albumin/Globulin Ratio 0.9 (1.0-2.3); Alkaline Phosphatase 61 U/L (39-117); Bilirubin,Total 0.3 mg/dL (0.0-1.0); Calcium 8.6 mg/dl (8.6-10.4); Carbon Dioxide 29 mmol/L (22-30); Chloride 102 mmol/L (96-108); Globulin 3.1 gm/dL (2.2-3.7); Glomerular Filtration Rate 36; Glucose 125 mg/dL (70-105)
[2020-03-17 05:53] LABS: Blood Urea Nitrogen 22 mg/dl (8-23)
[2020-03-17] MEDS ORDERED: MAGNESIUM SULFATE 2 GM/50 ML BAG IV PRN (07:59)
[2020-03-17] MEDS ORDERED: POTASSIUM CHLORIDE 40 MEQ in DEXTROSE 5% IN WATER 500 ML IV PRN (07:59)
[2020-03-17] MEDS: ASPIRIN 81 MG TAB.CHEW PO SCH (08:09)
[2020-03-17] MEDS: DOCUSATE SODIUM 100 MG CAPSULE PO SCH ×2 (08:09→21:30)
[2020-03-17] MEDS: DILTIAZEM 120 MG CAP.XL.24H PO SCH (08:09)
[2020-03-17] MEDS: POTASSIUM CHLORIDE 20 MEQ TABLET PO SCH ×3 (08:09→17:02)
[2020-03-17] MEDS: GABAPENTIN 300 MG CAPSULE PO SCH (08:10)
[2020-03-17] MEDS: OMEPRAZOLE 20 MG CAPSULE PO SCH ×2 (08:10→17:01)
[2020-03-17] MEDS: METOPROLOL TARTRATE 25 MG TABLET PO SCH ×2 (08:10→21:30)
[2020-03-17] MEDS: 0.9 % SODIUM CHLORIDE 1,000 ML IV SCH ×2 (08:14→17:34)
[2020-03-17] MEDS: POTASSIUM CHLORIDE 10 MEQ TABLET PO SCH ×2 (08:16→17:02)
[2020-03-17] MEDS: HEPARIN 5,000 UNIT/ML VIAL SQ SCH ×2 (08:19→21:29)
[2020-03-17] MEDS: CHLORTHALIDONE 25 MG TABLET PO SCH (08:28)
[2020-03-17] MEDS: INSULIN LISPRO 1 UNIT/0.01 ML UNIT SQ SCH ×4 (09:15→21:29)
[2020-03-17] MEDS ORDERED: PNEUMOCOCCAL 23-VAL P-SAC VAC 0.5 ML SYRINGE IM ONE (10:00)
--- NOTE | 2020-03-17 13:56 | Internal Med Progress Note ---
Medical - PN: Subj Patient information: Note initiated : 03/17/20 at 1:54 pm Service Date, if different from initiated Date: [] Patient: Gregory Kiser 79 y/o M admitted on 03/13/20 for Fever/cough. Chief Complaint: [] Interval history: Mr. Kiser is a 79 year old M with a history of kidney disease who was brought to the ER due to fall, fever and delirium. Patient is a poor historian and almost all history is obtained from ER physician and chart. His son did provide some information to ER physician late this afternoon. Patient fell at home and stayed on the floor for 5 to 6 hours because he was so weak. This morning patient was found to have mild fever, delirium and generalized weakness. He also has been having cough for a couple of days. ER nurse stated that on patient arrival he did seem confused but this improved with hydration and Tylenol. In the ER, he had one episode of desaturation, 89%. CT chest - Possible subtle areas of groundglass opacity are present. Covid 19 was sent When I saw patient in the ER, other than the symptoms mentioned above, he could not tell me more history. Denies chest pain, headache, dizziness, abdominal pain, or dysuria. 03/14 Pt does not have complaints. Denies headache, fever/chills, n/v, chest pain or abd pain. BP is better controlled He was found to have unequal pupils. No significant neurological deficits. CT of head was ordered but he refused it. CT of head yesterday - no acute change. Blood culture, LA, procalcitonin azithromycin and ceftriaxone were started this morning. I will stop ceftriaxone and start zosyn Mag and phos were given, will repeat them in am 03/15 Pt does not have complaints. Denies headache, fever/chills, n/v, chest pain or abd pain. Pupils are fine. No significant neurological deficits. CT of head today - no acute changes. CT chest - negative Blood culture - no growth so far LA - 1.7 procalcitonin - 8.73 WBC 11.2 I would like to discontinue azithromycin and continue zosyn for today. I could discontinue zosyn tomorrow. closely monitor 03/16 Pt does not have complaints. Denies have sob, fever/chills or cough. Good SpO2 on RM wbc normalized today. Abx discontinued today. K 3.1, KCl was given As per PT, he needs home health. He was initially planning to be discharged to son's house. Contacted son family who refused to accepted him because the family had a new baby recently. The family is worried about not enough isolation for covid . 03/17-patient doing well. Currently on room air. Creatinine downtrending at 1.8. Low potassium on replacement. Tachycardia improving. COVID test pending. Case management coordinating discharge plan. Improved diarrhea. - Constitutional Vitals: Vital Signs Temp Pulse Resp BP Pulse Ox 97.1 F 128 H 23 H 134/85 100 03/17/20 12:01 03/17/20 09:17 03/17/20 12:19 03/17/20 12:01 03/17/20 09:17 Period Temp Pulse Resp BP Sys/Bello Pulse Ox Last 24 Hr 97 F-98.3 F 128 15-23 134-181/73-118 97-100 Intake and Output 03/16/20 03/17/20 03/17/20 21:59 05:59 13:59 Intake Total 360 1480 1103 Output Total 301 200 600 Balance 59 1280 503 Weight 233 lb Intake & Output: Intake & Output 03/16/20 03/17/20 03/17/20 21:59 05:59 13:59 Intake Total 360 1480 1103 Output Total 301 200 600 Balance 59 1280 503 Weight 233 lb Intake: IV 1000 743 Sodium Chloride 0.9% 1,000 ml @ 1000 743 75 mls/hr IV .[id number] [facility] Rx#: [id number] Oral 360 480 360 Output: Void Amount 300 200 600 # of times incontinent of urine 1 Other: Meal Dinner Breakfast Percent of Meal Consumed 50% 100% Feeding Ability Independent Independent Urine Appearance Clear Urine Color Pale Stool Size Moderate Stool Color Brown Green Stool Consistency Liquid # Voids 1 # Bowel Movements 1 # of times incontinent of 0 Bowels General appearance: no acute distress Exam: Alert and respond to commands Sitting on chair Nonlabored breathing No anxiety Intermittent tachycardia Medical - PN: Obj Da - Labs CBC & Chem 7: 03/17/20 04:05 03/17/20 04:05 Labs: Abnormal Lab Results 04/27/20 04/27/20 04/26/20 04:05 04:05 04:17 WBC RBC 4.35 L Hgb 12.4 L Hct 38.6 L Plt Count 122 L MPV 11.7 H Gran % Lymph % (Auto) 12.8 L Gran # Lymph # (Auto) 1.08 L [place] # (Auto) Potassium 3.1 L BUN 28 H Creatinine 1.8 H 2.0 H Glucose 125 H 160 H Calcium 8.5 L Total Protein Albumin 2.9 L 2.6 L Albumin/Globulin Ratio 0.9 L 0.8 L 03/16/20 03/15/20 03/15/20 04:17 04:37 04:37 WBC 11.2 H RBC 4.47 L 4.42 L Hgb 12.6 L 12.5 L Hct 39.7 L 39.3 L Plt Count 111 L 102 L MPV 11.4 H 11.7 H Gran % 83.4 H Lymph % (Auto) 11.3 L 7.7 L Gran # 9.35 H Lymph # (Auto) 0.89 L 0.86 L [place] # (Auto) 0.92 H Potassium 3.1 L BUN 33 H Creatinine 2.1 H Glucose 154 H Calcium 8.3 L Total Protein 5.8 L Albumin 2.6 L Albumin/Globulin Ratio 0.8 L 03/14/20 15:35 WBC 12.1 H RBC 4.50 L Hgb 12.7 L Hct 39.9 L Plt Count 98 L MPV 11.6 H Gran % 89.6 H Lymph % (Auto) 4.9 L Gran # 10.88 H Lymph # (Auto) 0.59 L [place] # (Auto) Potassium BUN Creatinine Glucose Calcium Total Protein Albumin Albumin/Globulin Ratio Meds: Medications Acetaminophen (Tylenol) 650 mg PO Q6HP PRN; Protocol PRN Reason: Per Pain Protocol/Fever > 101 Albuterol/Ipratropium (Combivent) 2 puff INH TIDP PRN PRN Reason: Shortness Of Breath Aspirin (Aspirin) 81 mg PO DAILY [facility] Last Admin: 03/17/20 08:09 Dose: 81 mg Documented by: Atorvastatin Calcium (Lipitor) 40 mg PO HS [facility] Last Admin: 03/16/20 21:54 Dose: 40 mg Documented by: Chlorthalidone (Hygroton) 12.5 mg PO DAILY [facility] Last Admin: 03/17/20 08:28 Dose: 12.5 mg Documented by: Dextrose (Dextrose 50%) 0 ml IV UD PRN PRN Reason: Hypoglycemia Diagnostic Test (Pha) (Accu-Chek) 1 each FS ACHS [facility] Last Admin: 03/17/20 09:15 Dose: 1 each Documented by: Diltiazem HCl (Cardizem Sr) 120 mg PO DAILY [facility] Last Admin: 03/17/20 08:09 Dose: 120 mg Documented by: Docusate Sodium (Colace) 100 mg PO BID [facility] Last Admin: 03/17/20 08:09 Dose: 100 mg Documented by: Gabapentin (Neurontin) 600 mg PO DAILY [facility] Last Admin: 03/17/20 08:10 Dose: 600 mg Documented by: Glucose (Insta-Glucose) 15 gm PO PRN PRN PRN Reason: Hypoglycemia Heparin Sodium (Porcine) (Heparin) 5,000 unit SQ Q12 [facility] Last Admin: 03/17/20 08:19 Dose: 5,000 unit Documented by: Hydralazine HCl (Apresoline) 10 mg IV Q4-6HP PRN PRN Reason: Hypertension Sodium Chloride (Sodium Chloride 0.9%) 1,000 mls @ 30 mls/hr IV .Q24H [facility] Last Admin: 03/17/20 08:14 Dose: Not Given Documented by: Magnesium Sulfate (Magnesium Sulfate) 2 gm in 50 mls @ 50 mls/hr IV UD PRN PRN Reason: Mag < or = 1.7 Potassium Chloride 40 meq/ (Dextrose) 520 mls @ 130 mls/hr IV UD PRN PRN Reason: K+ = or < 3.5 Last Admin: 03/17/20 08:00 Dose: 130 mls/hr Documented by: Insulin Glargine (Lantus) 7 unit SQ [facility] Last Admin: 03/16/20 21:59 Dose: 7 units Documented by: Insulin Human Lispro (Humalog) 0 unit SQ [facility]; Protocol Last Admin: 03/17/20 09:15 Dose: Not Given Documented by: Lorazepam (Ativan) 0.5 mg IV Q6HP PRN PRN Reason: ANXIETY/SEDATION Metoprolol Tartrate (Lopressor) 12.5 mg PO BID [facility] Last Admin: 03/17/20 08:10 Dose: 12.5 mg Documented by: [facility] Last Admin: 03/17/20 08:10 Dose: 20 mg Documented by: Potassium Chloride (Kdur) 20 meq PO TIDCC [facility] Last Admin: 03/17/20 12:07 Dose: 20 meq Documented by: Potassium Chloride (Kdur) 10 meq PO BIDCC [facility] Last Admin: 03/17/20 08:16 Dose: 10 meq Documented by: Prochlorperazine (Compazine) 12.5 mg GA Q12HP PRN; Protocol PRN Reason: Nausea And Vomiting Sodium Chloride (Saline Flush) 10 ml IV Q8 [facility] Last Admin: 03/17/20 12:02 Dose: 10 ml Documented by: Tramadol HCl (Ultram) 50 mg PO Q6HP PRN PRN Reason: Pain - ABG Interpretation ABG results: 03/13/20 13:58 ABG Methemoglobin 0 L VBG pH 7.42 VBG pCO2 TNP VBG pO2 107 H VBG HCO3 TNP VBG Total CO2 TNP VBG O2 Saturation 93.4 H VBG Base Excess TNP Medical - PN: A/P - Time Spent With Patient Total time spent is greater than 50% in coordination of care (as documented) at patient's floor/unit and/or counseling patient: - Narrative A/P Narrative: * Acute hypoxic respiratory failure * Community-acquired pneumonia clinically improved. Off antibiotics in light of interval improvement on chest imaging. * Sepsis with endorgan dysfunction second above clinically improved with white count down from 15-8.5 * Hypokalemia on potassium replacement * Acute kidney injury creatinine improved from 2.4-1.8 with crystalloids. * Intermittent SVTs currently on diltiazem * DM type II on basal prandial insulin * GERD on PPI * History of hypertension continue chlorthalidone/diltiazem * Hyperlipidemia on statin * Full code * Prophylaxis heparin Plan * Pre-existing medical condition management as above * PT OT/nutrition support * Monitor renal function * Potassium replacement * Discharge planning per case management
[2020-03-17] MEDS: INSULIN GLARGINE, HUMAN 1 UNIT/0.01 ML SQ SCH (21:28)
[2020-03-17] MEDS: ATORVASTATIN 40 MG TABLET PO SCH (21:30)
[2020-03-18] MEDS: 0.9 % SODIUM CHLORIDE 10 ML SYRINGE IV SCH (04:56)
[2020-03-18] MEDS: INSULIN LISPRO 1 UNIT/0.01 ML UNIT SQ SCH (08:08)
[2020-03-18] MEDS: POTASSIUM CHLORIDE 20 MEQ TABLET PO SCH (08:13)
[2020-03-18] MEDS: POTASSIUM CHLORIDE 10 MEQ TABLET PO SCH (08:13)
[2020-03-18] MEDS: OMEPRAZOLE 20 MG CAPSULE PO SCH (08:13)
--- NOTE | 2020-03-18 09:26 | Discharge Summary ---
Medical - DS: Prov Patient information: Note initiated : 03/18/20 at 9:24 am Service Date, if different from initiated Date: [] Patient: Gregory Kiser 79 y/o M admitted on 03/13/20 for Fever/cough. Chief Complaint: [] Date of admission: 03/13/20 21:01 Discharge date: 03/18/20 Consults: 03/13/20 19:00 Consult to Physician [CONS] Routine Comment: Consulting Provider: Cheko Prieto Reason For Exam: Physician to Consult 03/17/20 08:54 Consult to Physician [CONS] Routine Comment: For placement at [facility] Consulting Provider: Rd Soliman Reason For Exam: Physician to Consult Medical - DS: Meds - Discharge Medications Active and Home Medications: Home Medications Aspirin [Lo-Dose Aspirin EC] 81 mg PO DAILY 03/13/20 [History Confirmed 03/15/20 Last Taken Unknown] Chlorthalidone [Hygroton] 12.5 mg PO DAILY 03/13/20 [History Confirmed 03/15/20 Last Taken Unknown] Diltiazem [Cardizem Sr] 120 mg PO DAILY 03/13/20 [History Confirmed 03/15/20 Last Taken Unknown] Gabapentin 600 mg PO BID 03/13/20 [History Confirmed 03/15/20 Last Taken Unknown] Insulin Glargine, Human [Lantus] 40 unit SQ HS 03/13/20 [History Confirmed 03/16/20 Last Taken Unknown] Novolog Flexpen See Protocol SQ ACHS 03/13/20 [History Confirmed 03/16/20 Last Taken Unknown] Omeprazole 20 mg PO BID 03/13/20 [History Confirmed 03/15/20 Last Taken Unknown] Potassium Chloride [Kdur] 10 meq PO BIDCC 03/13/20 [History Confirmed 03/15/20 Last Taken Unknown] Pravastatin [Pravachol] 40 mg PO HS 03/13/20 [History Confirmed 03/15/20 Last Taken Unknown] Medical - DS: Hosp Hospital Course: Discharge diagnosis * Acute hypoxic respiratory failure-likely solution noted * Community-acquired pneumonia clinically improved. Off antibiotics in light of interval improvement on chest imaging. * Sepsis with endorgan dysfunction second above clinically improved with white count down from 15->8.5 * Hypokalemia -resolved with replacement * Acute kidney injury creatinine improved from 2.4->1.8 with crystalloids. Repeat BMP in 1 week * Intermittent SVTs currently on diltiazem. Stable * DM type II on basal prandial insulin * GERD on PPI * History of hypertension continue chlorthalidone/diltiazem * Hyperlipidemia on statin Brief hospital course Mr. Kiser is a 79 year old M with a history of kidney disease who was brought to the ER due to fall, fever and delirium. Patient is a poor historian and almost all history is obtained from ER physician and chart. His son did provide some information to ER physician late this afternoon. Patient fell at home and stayed on the floor for 5 to 6 hours because he was so weak. This morning patient was found to have mild fever, delirium and generalized weakness. He also has been having cough for a couple of days. ER nurse stated that on patient arrival he did seem confused but this improved with hydration and Tylenol. In the ER, he had one episode of desaturation, 89%. CT chest - Possible subtle areas of groundglass opacity are present. Covid 19 was sent When I saw patient in the ER, other than the symptoms mentioned above, he could not tell me more history. Denies chest pain, headache, dizziness, abdominal pain, or dysuria. 03/14 Pt does not have complaints. Denies headache, fever/chills, n/v, chest pain or abd pain. BP is better controlled He was found to have unequal pupils. No significant neurological deficits. CT of head was ordered but he refused it. CT of head yesterday - no acute change. Blood culture, LA, procalcitonin azithromycin and ceftriaxone were started this morning. I will stop ceftriaxone and start zosyn Mag and phos were given, will repeat them in am 03/15 Pt does not have complaints. Denies headache, fever/chills, n/v, chest pain or abd pain. Pupils are fine. No significant neurological deficits. CT of head today - no acute changes. CT chest - negative Blood culture - no growth so far LA - 1.7 procalcitonin - 8.73 WBC 11.2 I would like to discontinue azithromycin and continue zosyn for today. I could discontinue zosyn tomorrow. closely monitor 03/16 Pt does not have complaints. Denies have sob, fever/chills or cough. Good SpO2 on RM wbc normalized today. Abx discontinued today. K 3.1, KCl was given As per PT, he needs home health. He was initially planning to be discharged to son's house. Contacted son family who refused to accepted him because the family had a new baby recently. The family is worried about not enough isolation for covid 19. 03/17-patient doing well. Currently on room air. Creatinine downtrending at 1.8. Low potassium on replacement. Tachycardia improving. COVID test pending. Case management coordinating discharge plan. Improved diarrhea. 03/18-patient doing well. Discharging advised to follow primary care physician. No overnight events. COVID test negative. Feels at baseline. Ambulating. Tolerating diet. Ongoing physical therapies. Discharge diagnosis: . - Time Spent with Patient Total time spent providing and/or coordinating discharge services: Greater than 30 minutes Medical - DS: Exam - Constitutional Vitals: Vital Signs Temp Pulse Resp BP BP Pulse Ox 03/18/20 09:11 98.6 F 20 169/93 93 03/18/20 03:08 98.1 F 131 H 20 172/90 92 03/17/20 23:21 97.8 F 130 H 22 165/88 96 03/17/20 18:48 98.8 F 130 H 22 168/98 94 03/17/20 16:08 97 F 24 H 03/17/20 15:27 19 03/17/20 15:20 18 169/86 99 03/17/20 12:19 23 H 03/17/20 12:01 97.1 F 20 134/85 Intake and Output 03/17/20 03/18/20 03/18/20 21:59 05:59 13:59 Intake Total 257 400 320 Output Total 1 0 Balance 256 400 320 Intake: IV 257 Sodium Chloride 0.9% 1,000 ml @ 257 75 mls/hr IV .[id number] [facility] Rx#: [id number] Oral 400 320 Output: Void Amount 0 # of times incontinent of urine 1 Other: Meal Dinner Breakfast Percent of Meal Consumed 100% 50% Feeding Ability Independent Assist with Tray Set Up Stool Size Moderate Small Small Stool Color Brown Brown Brown Yellow Stool Consistency Loose Soft Soft # Voids 1 1 1 # Bowel Movements 1 1 1 # of times incontinent of 1 Bowels Weight 232 lb 8 oz Medical - DS: Data Labs on day of discharge: Labs from last 24 hours 03/13/20 17:30 Nasal/Oral COVID-19 PCR No ncov rna detected COVID-19 PCR Interp Cov rna not detected Preliminary micro results at discharge 03/13/20 14:35 Blood Culture - Preliminary Blood 03/13/20 14:38 Blood Culture - Preliminary Blood 03/14/20 15:25 Blood Culture - Preliminary Blood 03/14/20 15:35 Blood Culture - Preliminary Blood Medical - DS: A/P - Patient/Caregiver Discharge Instructions Activity: as per physical therapy, increase activity as tolerated Diet: Regular Diet Additional Instructions: Increase activity as tolerated. Consistent carbohydrate diet as tolerated. Resume home mediations. Follow-up with your primary care physician, Dr. Thao as scheduled. - Follow up Plan Follow up with: Other/Unlisted [Outside] - 03/24/20 8:30 am (Dr. Thao ) Disposition: Xfer SNF Care Plan Goals: This discharge packet is provided to you to help keep you informed about your care. We want to ensure you get everything you need when you go home. You will also be receiving a call from us in a few days to follow up with you and see how you are doing since your discharge. This gives us a chance to listen to any concerns you maybe experiencing since you were discharged or any additional needs you may have, as well as providing us feedback on your care experience. We strive to always provide excellent care and thank you for your feedback and for choosing [facility]. Prognosis: Fair Rehab Potential: Good I certify that the patient requires SNF services: Yes Overall status at discharge: patient is progressing back to baseline
[2020-03-18] MEDS: DOCUSATE SODIUM 100 MG CAPSULE PO SCH (09:51)
[2020-03-18] MEDS: METOPROLOL TARTRATE 25 MG TABLET PO SCH (09:52)
[2020-03-18] MEDS: CHLORTHALIDONE 25 MG TABLET PO SCH (09:53)
[2020-03-18] MEDS: DILTIAZEM 120 MG CAP.XL.24H PO SCH (09:53)
[2020-03-18] MEDS: ASPIRIN 81 MG TAB.CHEW PO SCH (09:58)
[2020-03-18] MEDS: GABAPENTIN 300 MG CAPSULE PO SCH (09:58)
[2020-03-18] MEDS: HEPARIN 5,000 UNIT/ML VIAL SQ SCH (09:59)
[2020-03-18] MEDS: 0.9 % SODIUM CHLORIDE 1,000 ML IV SCH (11:51)
== END 2020-03-18 11:17 | DRG 871 ==
LOC: ED 12:51 → ICU 20:55 → MEDSUR 03-17 17:15
PROVIDERS: ADMIT Internal Medicine; ATTEND Internal Medicine